=== PATIENT | male | born 1955 | race Caucasian/White ===

== ENCOUNTER 2019-09-27 05:44 | Inpatient (IN) | payer BC ==
[~2019-09-27] VITALS: Ht 172.7 cm; Wt 81.1 kg
[2019-09-27] VITALS (22 sets, daily range): BP systolic 90–144; BP diastolic 44–79
[~2019-09-27 05:44] MED LIST: AMLO2.5T2 PO; BENA40TA8 PO; LANTUS SQ; METF-438 PO; ceFOXitin 2 GM ADDvantage bag 100 ML IV ONE; famotidine 20mg tablet PO ONE; ringers solution, lacted 1,000 ML IV SCH
[2019-09-27] MEDS ORDERED: LIDOcaine 1% (10mg/ml) 2ml vial ONE (06:11)
[2019-09-27] MEDS ORDERED: BUPIVAcaine/PF 2.5 mg/ml (0.25%) 30ml vial ONE ×2 (06:30→10:06)
[2019-09-27] MEDS ORDERED: ceFAZolin 1000mg inj ONE (06:30)
[2019-09-27] MEDS ORDERED: iohexol 300 MG/1 ML 50ml polymer ONE (06:30)
[2019-09-27 06:51] LABS: BASOPHILS # (AUTO) 0.1 X10'3 (0-0.2); BASOPHILS % (AUTO) 1.4 % (0-1); EOSINOPHILS # (AUTO) 0.1 X10'3 (0-0.9); EOSINOPHILS % (AUTO) 1.6 % (0-6); LYMPHOCYTES # (AUTO) 1.4 X10'3 (1.1-4.8); LYMPHOCYTES % (AUTO) 24.7 % (21-51); MEAN CORPUSCULAR HEMOGLOBIN 23.9 PG (27.0-31.0); MEAN CORPUSCULAR HGB CONC 32.4 g/dL (33.0-36.5); MEAN CORPUSCULAR VOLUME 73.7 FL (78-98); MONOCYTES # (AUTO) 0.7 X10'3 (0-0.9); MONOCYTES % (AUTO) 12.5 % (2-12); NEUTROPHILS # (AUTO) 3.4 X10'3 (1.8-7.7); NEUTROPHILS % (AUTO) 59.8 % (42-75); PRE OP HEMATOCRIT 30.8 % (42.0-52.0); PRE OP PLATELET COUNT 340 X10'3 (140-440); RED BLOOD COUNT 4.18 X10'6 (4.70-6.10); RED CELL DISTRIBUTION WIDTH 16.9 % (11.5-14.5)
[2019-09-27] MEDS ORDERED: MIDAZolam 5mg/5ml vial ONE (06:57)
[2019-09-27] MEDS ORDERED: fentaNYL /PF 50mcg/ml 5ml ampule ONE (06:58)
[2019-09-27 07:04] LABS: PRE OP INR 1.1 INR; PRE OP PROTIME 11.2 SECONDS (9.0-12.0)
[2019-09-27 07:05] LABS: ALBUMIN 3.6 G/DL (3.4-5.0); ALBUMIN/GLOBULIN RATIO 0.8 (1.1-1.5); ALKALINE PHOSPHATASE 64 IU/L (46-116); BLOOD UREA NITROGEN 5 MG/DL (7-18); BUN/CREATININE RATIO 5.7 (5.4-32.0); CALCIUM 8.7 MG/DL (8.5-10.1); CHLORIDE 106 MMOL/L (99-107); CREATININE 0.88 MG/DL (0.60-1.10); PRE OP ALT 20 U/L (30-65); PRE OP ANION GAP 11 (8-16); PRE OP AST 28 U/L (10-37); PRE OP BILIRUB, TOTAL 0.3 MG/DL (0.0-1.0); PRE OP GLUCOSE 106 MG/DL (70-104); PRE OP POTASSIUM 3.6 MMOL/L (3.4-5.1); PRE OP SODIUM 143 MMOL/L (135-145); TOTAL PROTEIN 8.1 G/DL (6.4-8.2); eGFR 87 ML/MIN
[2019-09-27] MEDS ORDERED: neostigmine methylsulfate 1 MG/ML 10ml vial ONE (07:05)
[2019-09-27] MEDS ORDERED: desflurane 240ml liquid inh. IH ONE (07:05)
[2019-09-27] MEDS ORDERED: sevoflurane 250ml liquid IH ONE (07:05)
[2019-09-27] MEDS ORDERED: glycopyrrolate 0.2mg/ml inj ONE (07:05)
[2019-09-27 07:10] LABS: HEMOGLOBIN A1C 7.2 % (4.5-6.2)
[2019-09-27] MEDS ORDERED: propofol inj 20 ML IV ONE (08:04)
[2019-09-27] MEDS ORDERED: LIDOcaine 2% (20mg/ml) 5ml vial ONE (08:04)
[2019-09-27] MEDS ORDERED: midazolam 2 mg/2 ml injection ONE (08:17)
[2019-09-27] MEDS ORDERED: dexamethasone sod phosphate 4mg/ml inj. ONE (08:54)
[2019-09-27] MEDS ORDERED: ondansetron/PF 4mg/2ml inj ONE (08:54)
[2019-09-27] MEDS ORDERED: ringers solution, lacted 1,000 ML IV SCH (08:55)
[2019-09-27] MEDS ORDERED: ondansetron/PF 4mg/2ml inj IV PRN ×2 (08:55→15:35)
[2019-09-27] MEDS ORDERED: meperidine/PF 25mg/ml syringe IV PRN ×2 (08:55)
[2019-09-27] MEDS ORDERED: morphine 4 MG/ML inj SYRINge IV PRN ×3 (08:55→15:35)
[2019-09-27] MEDS ORDERED: proCHLORperazine 10 MG/2 ml inj IV PRN (08:55)
[2019-09-27] MEDS ORDERED: BUPIVACAINE liposomal/PF 13.3 MG/ML vial IM ONE (10:06)
[2019-09-27] MEDS ORDERED: fentaNYL/PF 50MCG/1 ML 2ML syringe ONE ×2 (10:26→11:44)
[2019-09-27] MEDS ORDERED: acetaminophen 1,000mg/100ml IV 100 ML IV ONE ×2 (11:15→19:40)
[2019-09-27] MEDS ORDERED: rocuronium 10mg/ml inj IV ONE ×4 (12:38→14:00)
[2019-09-27] MEDS ORDERED: ePHEDrine 50MG/ML INJ. ONE (12:59)
[2019-09-27] MEDS ORDERED: morphine 10mg/ml inj. ONE (13:17)
[2019-09-27] MEDS ORDERED: insulin regular, human vial - multi-dose ONE (13:47)
[2019-09-27] MEDS ORDERED: etomidate 2mg/ml inj. ONE (14:00)
[2019-09-27] MEDS ORDERED: sodium chloride 0.9% 10ml vial - diluent IJ ONE (14:00)
[2019-09-27] MEDS ORDERED: sugammadex 200mg/2ml injection IV ONE (14:46)
[2019-09-27] MEDS ORDERED: fluoroscein sod 10% (100mg/ml) 5ml vial ONE (15:01)
[2019-09-27 15:25] LABS: ISTAT ANION GAP 11 (8-12); ISTAT BUN 4 mg/dL (6-19); ISTAT CL 108 mmol/L (99-107); ISTAT CREATININE 0.7 mg/dL (0.8-1.3); ISTAT GLUCOSE 195 mg/dL (70-104); ISTAT HGB 7.5 g/dl (14.0-18.0); ISTAT Hct 22 %PCV (42-52); ISTAT K 3.6 mmol/L (3.5-5.1); ISTAT NA 140 mmol/L (135-145); ISTAT TOTAL CO2 21 mmol/L (24-32); ISTAT eGFR > 90 ML/MIN; POC BUN/CREATININE RATIO 5.7 (5.4-32.0)
[2019-09-27] MEDS ORDERED: magnesium hydroxide 30ml (MOM) UD suspension PO PRN (15:35)
[2019-09-27] MEDS ORDERED: potassium Cl 20 mEq SR tablet PO PRN ×2 (15:35)
[2019-09-27] MEDS ORDERED: morphine 2 MG/ML inj. syringe IV PRN ×2 (15:35→19:40)
[2019-09-27] MEDS ORDERED: acetaminophen 325mg tablet PO PRN ×2 (15:35)
[2019-09-27] MEDS: K, MAG and/or Phos replacement - Verify level? MC SCH (15:35)
[2019-09-27] MEDS: meperidine/PF 25mg/ml syringe IV PRN ×2 (15:50→16:00)
--- NOTE | 2019-09-27 16:00 | NUR ---
MEDICATED FOR CONTINUED PAIN WITH DEMEROL, EFFECTIVE, FAMILY AT BEDSIDE, ACCUCHECK DONE, DR. BHATIA AT BEDSIDE UPDATE GIVEN.
--- NOTE | 2019-09-27 16:25 | NUR ---
PACU DISCHARGE CRITERIA MET, REPORT GIVEN TO MONSERRAT IN ICU. DENIES PAIN OR DISCOMFORT, TRANSFERRED TO ROOM IN STABLE GOOD CONDITION. FAMILY AT BEDSIDE, MEDICATED FOR PAIN PRIOR TO TRANSFER.
[2019-09-27] MEDS ORDERED: normal saline 1000ml 1,000 ML IV ONE (16:45)
--- NOTE | 2019-09-27 16:51 | NUR ---
ADMITTED TO PACU FROM OR ACCOMPANIED BY ANESTHESIA. INTIAL PHYSICAL ASSESSMENT DONE AND RECORDED. REPORT RECEIVED FROM ANESTHESIA. MEDICATED FOR PAIN ON ARRIVAL, PRESSURE LINES AIR ZEORED AND CALIBRATED. PCXR DONE ON ARRIVAL FOR LINE PLACEMENT. ARIE DRAIN, WOUND VAC, AND ILEOSTOMY NOTED AND FUNCTIONING. DR. TORRES IN ATTENDANCE
[2019-09-27] MEDS ORDERED: meperidine/PF 25mg/ml syringe ONE (16:59)
[2019-09-27 17:33] LABS: HEMATOCRIT 24.7 % (42.0-52.0); HEMOGLOBIN 7.9 g/dl (14.0-17.9); MEAN CORPUSCULAR HGB CONC 31.9 g/dL (33.0-36.5); MEAN CORPUSCULAR VOLUME 75.1 FL (78-98); MEAN PLATELET VOLUME 6.6 FL (7.4-10.4); PLATELET COUNT 197 X10'3 (140-440); RED BLOOD COUNT 3.29 X10'6 (4.70-6.10); RED CELL DISTRIBUTION WIDTH 17.7 % (11.5-14.5); WHITE BLOOD COUNT 2.3 X10'3 (4.5-11.0)
[2019-09-27] MEDS: LIDOcaine 5% patch TP SCH (18:01)
[2019-09-27] MEDS: piperacillin/tazo 4.5gm/100ml 100 ML IV SCH ×2 (18:04→23:51)
[2019-09-27] MEDS: morphine 4 MG/ML inj SYRINge IV PRN ×2 (18:06→22:52)
[2019-09-27] MEDS: potassium cl 20mEq in 1/2 NS 1,000 ML IV SCH (18:12)
--- NOTE | 2019-09-27 18:30 | NUR ---
Patient in room ICU 2038. I have received report from Joe MACIAS and had the opportunity to ask questions and assume patient care.
--- NOTE | 2019-09-27 19:40 | NUR ---
Radha updated on patient's status. Orders received. Pt drowsy but responds to questions, Tolerating occasional ice chips, no complaints of nausea. Will continue to monitor.
--- NOTE | 2019-09-27 20:17 | NUR ---
Dr. Cardenas updated on patient's status, orders received. Pt's family at bedside, questions answered, concerns addressed.
[2019-09-27] MEDS: ketorolac tromethamine 15mg/ml inj. IV SCH (20:20)
[2019-09-27] MEDS ORDERED: simethicone 80mg chew tab PO PRN (21:45)
[2019-09-28] VITALS (31 sets, daily range): BP systolic 83–117; BP diastolic 48–64
[2019-09-28] MEDS: potassium cl 20mEq in 1/2 NS 1,000 ML IV SCH ×3 (01:35→14:57)
[2019-09-28] MEDS ORDERED: MESSAGE TO PHARMACY PO ONE (01:50)
[2019-09-28] MEDS ORDERED: glucagon, human recombinant 1mg kit SUBCUT PRN (01:50)
[2019-09-28] MEDS ORDERED: dextrose ORAL solution 15 GM/59 ML bottle PO PRN ×2 (01:50)
[2019-09-28] MEDS ORDERED: dextrose 50%-water 50ml dispensing syringe IV PRN ×2 (01:50)
[2019-09-28 01:56] LABS: BASOPHILS % (AUTO) 0.1 % (0-1); EOSINOPHILS % (AUTO) 0 % (0-6); HEMATOCRIT 34.3 % (42.0-52.0); HEMOGLOBIN 11.1 g/dl (14.0-17.9); LYMPHOCYTES # (AUTO) 0.4 X10'3 (1.1-4.8); MEAN CORPUSCULAR HEMOGLOBIN 26.1 PG (27.0-31.0); MEAN CORPUSCULAR HGB CONC 32.5 g/dL (33.0-36.5); MEAN CORPUSCULAR VOLUME 80.4 FL (78-98); MEAN PLATELET VOLUME 7.7 FL (7.4-10.4); MONOCYTES # (AUTO) 0.2 X10'3 (0-0.9); MONOCYTES % (AUTO) 8.1 % (2-12); NEUTROPHILS # (AUTO) 2.1 X10'3 (1.8-7.7); NEUTROPHILS % (AUTO) 78.8 % (42-75); PLATELET COUNT 184 X10'3 (140-440); RED BLOOD COUNT 4.27 X10'6 (4.70-6.10); RED CELL DISTRIBUTION WIDTH 19.8 % (11.5-14.5); WHITE BLOOD COUNT 2.7 X10'3 (4.5-11.0)
[2019-09-28] MEDS: ketorolac tromethamine 15mg/ml inj. IV SCH ×4 (02:07→16:00)
[2019-09-28 02:10] LABS: PARTIAL THROMBOPLASTIN TIME 31 SECONDS (22-32)
[2019-09-28 02:20] LABS: ALANINE AMINOTRANSFERASE 16 U/L (12-78); ALBUMIN/GLOBULIN RATIO 0.7 (1.1-1.5); ALKALINE PHOSPHATASE 32 IU/L (46-116); ANION GAP 11 (8-16); ASPARTATE AMINO TRANSFERASE 28 U/L (10-37); BILIRUBIN,TOTAL 1.1 MG/DL (0.1-1.0); BLOOD UREA NITROGEN 12 MG/DL (7-18); BUN/CREATININE RATIO 7.6 (5.4-32.0); CALCIUM 6.6 MG/DL (8.5-10.1); CHLORIDE 108 MMOL/L (99-107); CREATININE 1.57 MG/DL (0.60-1.10); GLUCOSE 211 MG/DL (70-104); MAGNESIUM 1.1 MG/DL (1.5-2.4); PHOSPHORUS 5.5 MG/DL (2.3-4.5); POTASSIUM 4.8 MMOL/L (3.5-5.1); SODIUM 140 MMOL/L (135-145); TOTAL CARBON DIOXIDE 20.6 MMOL/L (24-32); TOTAL PROTEIN 4.8 G/DL (6.4-8.2); eGFR 45 ML/MIN
[2019-09-28] MEDS ORDERED: magnesium 4gm in 100ml NS 100 ML IV PRN (03:10)
[2019-09-28] MEDS ORDERED: magnesium 2GM in 50ml NS 50 ML IV PRN (03:10)
[2019-09-28 03:12] LABS: TOTAL CELLS COUNTED 100
[2019-09-28 03:13] LABS: ANISOCYTOSIS 2+; BURR CELLS FEW; ELLIPTOCYTES FEW; PLATELET ESTIMATE NORMAL
--- NOTE | 2019-09-28 03:16 | NUR ---
Radha updated on current labs, orders received. Pt appears to be sleeping at this time. Pt's son at bedside. Questions answered, concerns addressed. Will continue to monitor.
[2019-09-28] MEDS: acetaminophen 1,000mg/100ml IV 100 ML IV PRN ×3 (03:55→19:41)
--- NOTE | 2019-09-28 06:32 | NUR ---
Problems reprioritized. Patient report given, questions answered & plan of care reviewed with Adonis MACIAS. Addendum: 09/28/19 at 0639 by Tamy Smith RN Amend:Problems reprioritized. Patient report given, questions answered & plan of care reviewed with Brannon MACIAS.
[2019-09-28] MEDS: morphine 4 MG/ML inj SYRINge IV PRN ×3 (07:15→19:42)
[2019-09-28] MEDS: piperacillin/tazo 4.5gm/100ml 100 ML IV SCH ×2 (07:55→16:53)
[2019-09-28] MEDS: insulin Lispro (HumaLOG) vial - multi-dose SQ SCH (07:57)
[2019-09-28] MEDS: K, MAG and/or Phos replacement - Verify level? MC SCH (08:00)
[2019-09-28] MEDS: LIDOcaine 5% patch TP SCH (08:00)
[2019-09-28] MEDS ORDERED: enoxaparin 40mg/0.4ml syringe SUBCUT SCH (08:40)
[2019-09-28] MEDS ORDERED: albumin (Human) 5% 250ml 250 ML IV ONE ×2 (08:40→10:00)
--- NOTE | 2019-09-28 09:56 | NUR ---
DM consult: Pt with T2DM current A1c 7.2 with Metformin and Lantus on reported med list per H&P. Pt s/p colonoscopy with bilat ureteral stent placement and lap sigmoid colon resection. Diet advanced to clear liquid at this time. Pt would benefit from DM education prior to discharge once stable. Will continue to follow. Addendum: 09/28/19 at [address] Amended: Links added.
[2019-09-28 13:30] LABS: HEMATOCRIT 28.8 % (42.0-52.0); HEMOGLOBIN 9.4 g/dl (14.0-17.9); MEAN CORPUSCULAR HEMOGLOBIN 26.1 PG (27.0-31.0); MEAN CORPUSCULAR HGB CONC 32.5 g/dL (33.0-36.5); MEAN CORPUSCULAR VOLUME 80.3 FL (78-98); PLATELET COUNT 117 X10'3 (140-440); RED BLOOD COUNT 3.59 X10'6 (4.70-6.10); WHITE BLOOD COUNT 3.1 X10'3 (4.5-11.0)
[2019-09-28 15:54] LABS: PARTIAL THROMBOPLASTIN TIME 50 SECONDS (22-32)
[2019-09-28] MEDS: ipratropium/albuterol 3ml nebule NEB SCH ×2 (16:49→23:09)
--- NOTE | 2019-09-28 18:30 | NUR ---
Shift Summary: Dr. Mejia at bedside this AM with orders to ambulate patient and start post-surgical prophylactic Lovenox. Creatinine also noted to be elevated and urine output decreasing to less than 30ml/h; blood pressure also decreased with SBP in the upper 80s and low 90s. Orders for 500ml of 5% Albumin. After administration, no significant changes noted. By this time, patient ambulated with physical therapy and up in recliner. Blood pressure remained low in the low 90s and increased ARIE drain output with more sanguinous blood. Dr. Mejia notified with orders to check H/H. Blood pressure in the low 80s and 500ml normal saline orders. After obtaining H/H, a drop was noted from 11.[address] Mejia ordered x1 unit PRBC and to keep patient in bed. Patient's abdomen with increased distention; MD aware. Also, o2 requirements increasing: patient on 1L NC at the start of shift and up as high as 6L NC with o2 saturation in the low 90s. Dr. Yung consulting with orders for q8h metanebs and frequent turns; AM chest x-rays to follow. Dr. Yung also assessing kidneys with orders to increase 1/2 NS with 20 of K for 1 liter at 125ml/h and then decrease after that liter. pTT ordered by Dr. Yung with q4h hemograms; ptt resulted at [address] Yung notified: Orders to administer 1 unit of FFP. Patient report given to Letty MACIAS with all questions answered.
[2019-09-28] MEDS ORDERED: ipratropium/albuterol 3ml nebule NEB SCH (19:00)
[2019-09-28] MEDS: methylnaltrexone br 12mg/0.6ml inj***SubQ only SQ SCH (19:42)
[2019-09-28 20:54] LABS: HEMATOCRIT 32.8 % (42.0-52.0); HEMOGLOBIN 10.8 g/dl (14.0-17.9); MEAN CORPUSCULAR HEMOGLOBIN 26.5 PG (27.0-31.0); MEAN CORPUSCULAR VOLUME 80.3 FL (78-98); MEAN PLATELET VOLUME 7.8 FL (7.4-10.4); PLATELET COUNT 103 X10'3 (140-440); RED BLOOD COUNT 4.08 X10'6 (4.70-6.10); RED CELL DISTRIBUTION WIDTH 20.2 % (11.5-14.5); WHITE BLOOD COUNT 2.4 X10'3 (4.5-11.0)
[2019-09-28] MEDS: insulin glargine (Lantus) pen - multi-dose SQ SCH (21:00)
[2019-09-28 21:04] LABS: PARTIAL THROMBOPLASTIN TIME 43 SECONDS (22-32)
[2019-09-28] MEDS: tizanidine 4mg tablet PO PRN (21:20)
[2019-09-28] MEDS ORDERED: naloxone 0.4 mg/ml inj IV PRN (23:00)
[2019-09-28] MEDS: HYDROmorphone/NS 1 mg/ml CADD 50 ML IV SCH (23:00)
[2019-09-28] MEDS ORDERED: CADD PCA waste documentation MC SCH (23:00)
[2019-09-29] VITALS (24 sets, daily range): BP systolic 89–137; BP diastolic 50–81
[2019-09-29] MEDS: piperacillin/tazo 4.5gm/100ml 100 ML IV SCH ×4 (00:01→23:34)
[2019-09-29] MEDS: potassium cl 20mEq in 1/2 NS 1,000 ML IV SCH ×2 (00:01→17:35)
[2019-09-29] MEDS: HYDROmorphone/NS 1 mg/ml CADD 50 ML IV SCH ×13 (00:01→23:00)
[2019-09-29 00:36] LABS: BASOPHILS % (AUTO) 0.3 % (0-1); EOSINOPHILS % (AUTO) 0.9 % (0-6); HEMATOCRIT 32.2 % (42.0-52.0); HEMOGLOBIN 10.6 g/dl (14.0-17.9); LYMPHOCYTES # (AUTO) 0.4 X10'3 (1.1-4.8); LYMPHOCYTES % (AUTO) 17.1 % (21-51); MEAN CORPUSCULAR HEMOGLOBIN 26.3 PG (27.0-31.0); MEAN CORPUSCULAR HGB CONC 32.9 g/dL (33.0-36.5); MEAN CORPUSCULAR VOLUME 79.9 FL (78-98); MEAN PLATELET VOLUME 7.6 FL (7.4-10.4); MONOCYTES # (AUTO) 0.1 X10'3 (0-0.9); MONOCYTES % (AUTO) 5.2 % (2-12); NEUTROPHILS % (AUTO) 76.5 % (42-75); PLATELET COUNT 92 X10'3 (140-440); RED BLOOD COUNT 4.03 X10'6 (4.70-6.10); RED CELL DISTRIBUTION WIDTH 20.3 % (11.5-14.5); WHITE BLOOD COUNT 2.6 X10'3 (4.5-11.0)
[2019-09-29 00:46] LABS: PHOSPHORUS 4.2 MG/DL (2.3-4.5)
[2019-09-29 01:01] LABS: ANISOCYTOSIS 3+; MICROCYTOSIS 1+; PLATELET ESTIMATE DECREASED; TOTAL CELLS COUNTED 100
[2019-09-29 01:02] LABS: BURR CELLS 2+; ELLIPTOCYTES FEW; POLYCHROMASIA FEW
[2019-09-29 01:18] LABS: ALANINE AMINOTRANSFERASE 30 U/L (12-78); ALBUMIN 2.2 G/DL (3.4-5.0); ALBUMIN/GLOBULIN RATIO 0.8 (1.1-1.5); ALKALINE PHOSPHATASE 29 IU/L (46-116); ANION GAP 14 (8-16); ASPARTATE AMINO TRANSFERASE 44 U/L (10-37); BILIRUBIN,TOTAL 0.9 MG/DL (0.1-1.0); BLOOD UREA NITROGEN 19 MG/DL (7-18); BUN/CREATININE RATIO 10.3 (5.4-32.0); CALCIUM 6.8 MG/DL (8.5-10.1); CHLORIDE 105 MMOL/L (99-107); CREATININE 1.85 MG/DL (0.60-1.10); GLUCOSE 111 MG/DL (70-104); MAGNESIUM 2.3 MG/DL (1.5-2.4); POTASSIUM 5.1 MMOL/L (3.5-5.1); SODIUM 137 MMOL/L (135-145); TOTAL CARBON DIOXIDE 18.5 MMOL/L (24-32); TOTAL PROTEIN 5.1 G/DL (6.4-8.2); eGFR 37 ML/MIN
[2019-09-29 04:49] LABS: HEMATOCRIT 31.8 % (42.0-52.0); HEMOGLOBIN 10.4 g/dl (14.0-17.9); MEAN CORPUSCULAR HEMOGLOBIN 26.4 PG (27.0-31.0); MEAN CORPUSCULAR HGB CONC 32.7 g/dL (33.0-36.5); MEAN CORPUSCULAR VOLUME 80.8 FL (78-98); MEAN PLATELET VOLUME 7.9 FL (7.4-10.4); PLATELET COUNT 90 X10'3 (140-440); RED BLOOD COUNT 3.93 X10'6 (4.70-6.10); RED CELL DISTRIBUTION WIDTH 20.3 % (11.5-14.5); WHITE BLOOD COUNT 3.5 X10'3 (4.5-11.0)
[2019-09-29] MEDS: ipratropium/albuterol 3ml nebule NEB SCH ×3 (07:58→23:00)
[2019-09-29] MEDS: K, MAG and/or Phos replacement - Verify level? MC SCH (08:00)
[2019-09-29] MEDS: LIDOcaine 5% patch TP SCH (08:00)
[2019-09-29] MEDS: docusate sod 100mg capsule PO SCH ×2 (08:26→20:39)
[2019-09-29] MEDS: albumin (human) 25% 100ml IV 200 ML IV SCH ×3 (08:30→23:34)
[2019-09-29 09:01] LABS: HEMATOCRIT 33.1 % (42.0-52.0); MEAN CORPUSCULAR HEMOGLOBIN 26.5 PG (27.0-31.0); MEAN CORPUSCULAR HGB CONC 33.2 g/dL (33.0-36.5); MEAN CORPUSCULAR VOLUME 79.9 FL (78-98); MEAN PLATELET VOLUME 7.9 FL (7.4-10.4); PLATELET COUNT 92 X10'3 (140-440); RED BLOOD COUNT 4.14 X10'6 (4.70-6.10); RED CELL DISTRIBUTION WIDTH 20.2 % (11.5-14.5); WHITE BLOOD COUNT 5.1 X10'3 (4.5-11.0)
[2019-09-29] MEDS: sodium bicarbonate (8.4%) inj. 100 MEQ in dextrose 5%-water 1,000 ML IV SCH ×2 (09:30→20:42)
--- NOTE | 2019-09-29 12:41 | NUR ---
Initial: Pt s/p lysis of dense adhesions, repair of perforated colon to pelvic side wall, 10cm rectal and 40cm sigmoid CA resection, and diverting ileostomy placement per MD note. Pt R colon dilated pressing on diaphragm but connected to anus to able to move out gas per MD note. 30ml ileostomy output noted so far post-op receiving colace and relistor. Pt remains on clear liquids per RN 25% PO first day documented so far. RD d/w RN regarding advancement to low-residue/carb controlled diet per surgeon approval given MD note states surgeon okayed pt to eat anything. Pt will need DM/ileostomy diet eds once more appropriate post-op prior to d/c. Will monitor for diet advancement and tolerance. Rec: 1. advance diet per MD to carb controlled/low-residue 2. monitor for ONS needs post-op 3. DM/ileostomy eds prior to d/c 4. monitor for ileostomy output post-op 5. daily wts Addendum: 09/29/19 at [address] Amended: Links added.
[2019-09-29 13:14] LABS: HEMATOCRIT 30.7 % (42.0-52.0); MEAN CORPUSCULAR HEMOGLOBIN 26.4 PG (27.0-31.0); MEAN CORPUSCULAR HGB CONC 32.6 g/dL (33.0-36.5); PLATELET COUNT 82 X10'3 (140-440); RED BLOOD COUNT 3.79 X10'6 (4.70-6.10); RED CELL DISTRIBUTION WIDTH 20.7 % (11.5-14.5); WHITE BLOOD COUNT 6.4 X10'3 (4.5-11.0)
[2019-09-29] MEDS: fluconazole-Diflucan 200mg/NS 100 ML IV SCH (13:20)
[2019-09-29] MEDS: tizanidine 4mg tablet PO PRN (13:41)
[2019-09-29] MEDS ORDERED: amiodarone/D5 360MG/200ML BAG 200 ML IV SCH (14:35)
[2019-09-29] MEDS ORDERED: amiodarone 150mg/dext, iso-os 100 ML IV ONE ×2 (14:35→14:40)
[2019-09-29] MEDS ORDERED: amiodarone/D5 360MG/200ML BAG 200 ML IV ONE (14:40)
[2019-09-29] MEDS ORDERED: verapamil 2.5 mg/ml inj IV ONE (15:00)
[2019-09-29] MEDS ORDERED: digoxin 250mcg/ml 2ml ampule IV ONE ×3 (15:35→21:45)
[2019-09-29 16:49] LABS: HEMATOCRIT 30.2 % (42.0-52.0); HEMOGLOBIN 10.1 g/dl (14.0-17.9); MEAN CORPUSCULAR HGB CONC 33.4 g/dL (33.0-36.5); MEAN CORPUSCULAR VOLUME 80.8 FL (78-98); MEAN PLATELET VOLUME 7.6 FL (7.4-10.4); PLATELET COUNT 79 X10'3 (140-440); RED BLOOD COUNT 3.74 X10'6 (4.70-6.10); RED CELL DISTRIBUTION WIDTH 20.6 % (11.5-14.5); WHITE BLOOD COUNT 7.9 X10'3 (4.5-11.0)
[2019-09-29] MEDS ORDERED: diltiazem 5mg/ml 5ml inj. IV ONE (18:05)
[2019-09-29] MEDS ORDERED: diltiazem-NS 100mg/100ml 125 ML IV SCH (18:15)
[2019-09-29] MEDS: diltiazem-NS 100mg/100ml 100 ML IV SCH (18:54)
--- NOTE | 2019-09-29 19:09 | NUR ---
HR converted to Afib around 1500, EKG done, called , Ordered received to start on Amiodarone bolus and drip per protocol. Order noted. Per Dr. Salazar administered Verapamil with no effectiveness. Dr. Elmore ordered Digoxin which was given with no decrease in HR. Per Dr. Carranza administered 10mg Cardizem push and started pt on cardizem drip. Gave report to Letty (shift supervisor rn Nurse).
[2019-09-29] MEDS: sodium bicarbonate (8.4%) inj. 75 MEQ in dextrose 5%-water 500 ML IV SCH ×2 (19:26→23:30)
[2019-09-29] MEDS: amiodarone/D5 360MG/200ML BAG 200 ML IV SCH (20:40)
[2019-09-29] MEDS: insulin glargine (Lantus) pen - multi-dose SQ SCH (21:00)
[2019-09-30] VITALS (25 sets, daily range): BP systolic 104–183; BP diastolic 50–93
[2019-09-30 00:31] LABS: ABG BASE EXCESS -6.1 mmol/L (-2.0-3.0); ABG HCO3 19.4 mmol/L (22.0-26.0); ABG PCO2 (T) 39.7 mmHg (35.0-45.0); ABG PO2 (T) 62.7 mmHg (83-108); ALLEN'S TEST Positive; FCOHb 0.3 % (0.5-1.5); FLOW 40 L/min; FMetHb 0.1 % (0.3-1.12); FO2Hb 89.6 % (94-100); PATIENT TEMPERATURE 37.9; TOTAL HEMOGLOBIN 10.9 G/dl (14.0-17.9)
[2019-09-30 00:38] LABS: BASOPHILS % (AUTO) 0.2 % (0-1); EOSINOPHILS # (AUTO) 0.1 X10'3 (0-0.9); EOSINOPHILS % (AUTO) 0.6 % (0-6); HEMATOCRIT 30.4 % (42.0-52.0); LYMPHOCYTES # (AUTO) 0.6 X10'3 (1.1-4.8); LYMPHOCYTES % (AUTO) 6.9 % (21-51); MEAN CORPUSCULAR HEMOGLOBIN 26.4 PG (27.0-31.0); MEAN CORPUSCULAR HGB CONC 32.9 g/dL (33.0-36.5); MEAN CORPUSCULAR VOLUME 80.1 FL (78-98); MEAN PLATELET VOLUME 7.3 FL (7.4-10.4); MONOCYTES # (AUTO) 0.2 X10'3 (0-0.9); MONOCYTES % (AUTO) 2.4 % (2-12); NEUTROPHILS # (AUTO) 8.3 X10'3 (1.8-7.7); NEUTROPHILS % (AUTO) 89.9 % (42-75); PLATELET COUNT 79 X10'3 (140-440); RED BLOOD COUNT 3.79 X10'6 (4.70-6.10); RED CELL DISTRIBUTION WIDTH 20.7 % (11.5-14.5); WHITE BLOOD COUNT 9.3 X10'3 (4.5-11.0)
[2019-09-30 00:53] LABS: PARTIAL THROMBOPLASTIN TIME 50 SECONDS (22-32)
[2019-09-30 00:55] LABS: ALANINE AMINOTRANSFERASE 21 U/L (12-78); ALBUMIN 3.1 G/DL (3.4-5.0); ALBUMIN/GLOBULIN RATIO 1.1 (1.1-1.5); ALKALINE PHOSPHATASE 43 IU/L (46-116); ANION GAP 11 (8-16); ASPARTATE AMINO TRANSFERASE 47 U/L (10-37); BILIRUBIN,TOTAL 0.7 MG/DL (0.1-1.0); BLOOD UREA NITROGEN 18 MG/DL (7-18); BUN/CREATININE RATIO 12.3 (5.4-32.0); CALCIUM 7.8 MG/DL (8.5-10.1); CHLORIDE 102 MMOL/L (99-107); CREATININE 1.46 MG/DL (0.60-1.10); GLUCOSE 202 MG/DL (70-104); POTASSIUM 4.5 MMOL/L (3.5-5.1); SODIUM 136 MMOL/L (135-145); TOTAL CARBON DIOXIDE 23.2 MMOL/L (24-32); TOTAL PROTEIN 5.9 G/DL (6.4-8.2); eGFR 49 ML/MIN
[2019-09-30] MEDS ORDERED: midazolam 100mg in NS 100ml 100 ML IV PRN ×2 (01:00→09:05)
[2019-09-30] MEDS: HYDROmorphone/NS 1 mg/ml CADD 50 ML IV SCH ×12 (01:00→23:00)
[2019-09-30] MEDS ORDERED: ipratropium/albuterol 3ml nebule NEB PRN (01:00)
[2019-09-30] MEDS ORDERED: FENTANYL-0.9 % NACL/PF 100 ML IV PRN (01:00)
[2019-09-30 01:03] LABS: MAGNESIUM 2.2 MG/DL (1.5-2.4); PHOSPHORUS 2.2 MG/DL (2.3-4.5)
[2019-09-30] MEDS ORDERED: midazolam 2 mg/2 ml injection ONE ×2 (01:03→08:16)
[2019-09-30] MEDS: sodium bicarbonate (8.4%) inj. 75 MEQ in dextrose 5%-water 500 ML IV SCH ×4 (02:05→18:57)
--- NOTE | 2019-09-30 02:30 | NUR ---
Approx 2300, pt started having decreased saturations. NC increased from 6 to 8 liters with slight improvement. After a short period of time, desaturations continued requiring increase in NC to [address] RT attempted to place patient on a HFNC tower without much improvement and poor ABG analysis. LEI Ahn consulted Dr. Carranza and the decision was made to intubate. Upon ED MD arriving to intubate, the patients son determined he wanted to start with less invasive, more conservative measures. It was decided to place pt on Bipap with noted improvements in O2 sats. Repeat ABG showed improvement, Dr. Carranza notified by LEI Ahn.
[2019-09-30] MEDS ORDERED: ipratropium/albuterol 3ml nebule NEB SCH (03:00)
[2019-09-30] MEDS: heparin, porcine 5000 units/ml vial SQ SCH ×3 (03:24→15:41)
[2019-09-30 03:31] LABS: ABG BASE EXCESS -5.2 mmol/L (-2.0-3.0); ABG HCO3 20.9 mmol/L (22.0-26.0); ABG OXYGEN SATURATION 93.8 % (95-98); ABG PCO2 (T) 44.4 mmHg (35.0-45.0); ABG PH (T) 7.294 (7.350-7.450); ABG PO2 (T) 77.4 mmHg (83-108); ALLEN'S TEST Positive; FCOHb 0.3 % (0.5-1.5); FMetHb 0.1 % (0.3-1.12); FO2Hb 93.4 % (94-100); PATIENT TEMPERATURE 37.9; RESPIRATORY RATE 14 b/min; RESPIRATORY RATE (OBSERVED) 17 b/min; TOTAL HEMOGLOBIN 10.5 G/dl (14.0-17.9)
[2019-09-30] MEDS: potassium cl 20mEq in 1/2 NS 1,000 ML IV SCH ×3 (03:35→23:35)
[2019-09-30 03:41] LABS: ALANINE AMINOTRANSFERASE 22 U/L (12-78); ALBUMIN 2.8 G/DL (3.4-5.0); ALKALINE PHOSPHATASE 42 IU/L (46-116); ANION GAP 10 (8-16); ASPARTATE AMINO TRANSFERASE 33 U/L (10-37); BILIRUBIN,TOTAL 0.6 MG/DL (0.1-1.0); CALCIUM 7.6 MG/DL (8.5-10.1); CHLORIDE 104 MMOL/L (99-107); CREATININE 1.48 MG/DL (0.60-1.10); GLUCOSE 181 MG/DL (70-104); MAGNESIUM 2.1 MG/DL (1.5-2.4); PHOSPHORUS 2.2 MG/DL (2.3-4.5); POTASSIUM 4.4 MMOL/L (3.5-5.1); SODIUM 136 MMOL/L (135-145); TOTAL CARBON DIOXIDE 21.9 MMOL/L (24-32); TOTAL PROTEIN 5.6 G/DL (6.4-8.2); eGFR 48 ML/MIN
[2019-09-30 03:49] LABS: BLOOD UREA NITROGEN 16 MG/DL (7-18); BUN/CREATININE RATIO 10.8 (5.4-32.0)
[2019-09-30 05:22] LABS: CLARITY,URINE CLOUDY (Clear); COLOR,URINE BROWN (Yellow); GLUCOSE, URINE NEGATIVE (Neg); KETONES,URINE 15 mg/dl (Neg); LEUKOCYTE ESTERASE ,URINE NEGATIVE (Neg); OCCULT BLOOD,URINE LARGE (Neg); PROTEIN,URINE 100 mg/dl (Neg); UROBILINOGEN,URINE 0.2 E.U/dL (0.2-1.0)
[2019-09-30 05:23] LABS: NITRITES, URINE NEGATIVE (Neg); UA COLLECTION TYPE NON-SPECIFIED
[2019-09-30 05:29] LABS: RBC,URINE TNTC /HPF (0-2)
[2019-09-30 05:30] LABS: BACTERIA,URINE 1+ /HPF (Neg); MUCUS STRANDS NONE SEEN /LPF (Neg); SQUAMOUS EPITHELIAL CELL,UR NONE SEEN /LPF (FEW)
[2019-09-30 07:12] LABS: BASOPHILS % (AUTO) 0.3 % (0-1); EOSINOPHILS % (AUTO) 0.6 % (0-6); HEMOGLOBIN 10.7 g/dl (14.0-17.9); LYMPHOCYTES # (AUTO) 0.5 X10'3 (1.1-4.8); LYMPHOCYTES % (AUTO) 6.2 % (21-51); MEAN CORPUSCULAR HEMOGLOBIN 26.7 PG (27.0-31.0); MEAN CORPUSCULAR HGB CONC 33.5 g/dL (33.0-36.5); MEAN CORPUSCULAR VOLUME 79.8 FL (78-98); MEAN PLATELET VOLUME 7.5 FL (7.4-10.4); MONOCYTES # (AUTO) 0.3 X10'3 (0-0.9); MONOCYTES % (AUTO) 3.4 % (2-12); NEUTROPHILS # (AUTO) 6.7 X10'3 (1.8-7.7); NEUTROPHILS % (AUTO) 89.5 % (42-75); PLATELET COUNT 81 X10'3 (140-440); RED BLOOD COUNT 4.01 X10'6 (4.70-6.10); RED CELL DISTRIBUTION WIDTH 20.7 % (11.5-14.5); WHITE BLOOD COUNT 7.5 X10'3 (4.5-11.0)
[2019-09-30] MEDS: piperacillin/tazo 4.5gm/100ml 100 ML IV SCH (07:19)
[2019-09-30] MEDS: docusate sod 100mg capsule PO SCH (07:26)
[2019-09-30] MEDS: methylnaltrexone br 12mg/0.6ml inj***SubQ only SQ SCH (07:27)
[2019-09-30] MEDS: K, MAG and/or Phos replacement - Verify level? MC SCH (07:27)
[2019-09-30] MEDS: albumin (human) 25% 100ml IV 200 ML IV SCH ×2 (07:35→15:34)
[2019-09-30] MEDS: fluconazole-Diflucan 200mg/NS 100 ML IV SCH (07:48)
[2019-09-30] MEDS: ipratropium/albuterol 3ml nebule NEB SCH ×3 (07:53→22:56)
--- NOTE | 2019-09-30 07:59 | NUR ---
Dr. Coombs at bedside talking with patient and pt's son and .
--- NOTE | 2019-09-30 08:07 | NUR ---
PT ON BIPAP. UNABLE TO USE METANEB Addendum: 09/30/19 at 0808 by Tiara Herman RT Amended: Links added.
--- NOTE | 2019-09-30 08:11 | NUR ---
Dr. Elias at bedside talking with family and Dr. Yung.
[2019-09-30] MEDS: linezolid 600mg/300ml PREMIX 300 ML IV SCH ×2 (08:20→19:44)
[2019-09-30] MEDS: LIDOcaine 5% patch TP SCH (08:21)
[2019-09-30 08:48] LABS: PLATELET ESTIMATE DECREASED; TOTAL CELLS COUNTED 100
[2019-09-30] MEDS: diltiazem-NS 100mg/100ml 100 ML IV SCH (08:49)
[2019-09-30 08:54] LABS: ANISOCYTOSIS 3+; MICROCYTOSIS 1+
[2019-09-30 08:55] LABS: BURR CELLS FEW; POLYCHROMASIA FEW
[2019-09-30 08:56] LABS: ELLIPTOCYTES FEW; SCHISTOCYTES FEW
[2019-09-30] MEDS: amiodarone/D5 360MG/200ML BAG 200 ML IV SCH (09:01)
--- NOTE | 2019-09-30 09:51 | NUR ---
Pt. intubated at [address] Esparza to bronch pt.t this morning.
[2019-09-30 10:45] LABS: ABG BASE EXCESS -3.6 mmol/L (-2.0-3.0); ABG HCO3 22.1 mmol/L (22.0-26.0); ABG OXYGEN SATURATION 89.4 % (95-98); ABG PH (T) 7.315 (7.350-7.450); ABG PO2 (T) 62.8 mmHg (83-108); ALLEN'S TEST Positive; FCOHb 0.3 % (0.5-1.5); FLOW 35 L/min; FMetHb 0.1 % (0.3-1.12); MINUTE VOLUME 8 L/min; PATIENT TEMPERATURE 38.2; PEEP 10 cm H2O; RESPIRATORY RATE 14 b/min; RESPIRATORY RATE (OBSERVED) 16 b/min; TIDAL VOLUME 475 mL; TOTAL HEMOGLOBIN 9.9 G/dl (14.0-17.9)
--- NOTE | 2019-09-30 12:10 | NUR ---
TF consult (09/30): Pt is intubated with ARDS this am per MD during rounds. TF recommendations with Vital AF 1.2 Ike at goal rate of 75ml/hr. Temporary formula use for today with Glucerna at goal rate of 75ml/hr due to lack of Vital AF 1.2 Ike in stock; RN notified. Pt ileostomy output 65ml since placement and relistor to no longer be given per surgeon. Pt started on zyvox. Pt would benefit with zyvox ed when stable prior to discharge.Will continue to monitor. Rec: 1.Continuous TF using Vital AF 1.2 Ike at goal rate of 80ml/hr;to provide 1920ml fluid,2304kcal,1555ml free water, and 144g protein. 2.If out of Vital AF, TF using Glucerna at goal rate of 80ml/hr;to provide 1920ml fluid, 2304kcal,1555ml free water, and 115g protein, until Vital AF restocked. 3.Additional water flushes 125ml Q6H. 4. When extubate, advance diet per MD to carb controlled/low-residue 5. DM/ileostomy eds prior to d/c 6. monitor for ileostomy output post-op 7. daily wts; prealbumin qM/Th Addendum: 09/30/19 at [address] Amended: Links added. Addendum: 09/30/19 at [address] ZOLTAN [place]
[2019-09-30 13:34] LABS: PREALBUMIN 7.5 MG/DL (19-36)
[2019-09-30] MEDS ORDERED: insulin regular, human vial - multi-dose SQ SCH (13:50)
[2019-09-30] MEDS: piperacillin/tazo 3.375gm/50ml 50 ML IV SCH (15:31)
--- NOTE | 2019-09-30 16:39 | NUR ---
Dr. Yung here talking with pt's family. Stated Dr. Mejia may want to take pt. back to OR. Tube feeding turned off just in case pt. does go to OR. VQ scan that was scheduled for today at 1730 is on hold for now.
[2019-09-30] MEDS ORDERED: acetaminophen 325mg tablet CORPAK PRN (16:54)
[2019-09-30] MEDS ORDERED: tizanidine 4mg tablet CORPAK PRN (16:55)
[2019-09-30] MEDS ORDERED: POTASSIUM BICARB 20meq eff tab 20 MEQ TABLET.EFF CORPAK PRN ×2 (16:57)
[2019-09-30] MEDS: acetaminophen 325mg tablet CORPAK PRN (16:59)
--- NOTE | 2019-09-30 18:06 | NUR ---
Pt's daughter, son and updated on plan of care continuously today.
--- NOTE | 2019-09-30 18:17 | NUR ---
Problems reprioritized. Patient report given, questions answered & plan of care reviewed with Letty MACIAS.
[2019-09-30] MEDS ORDERED: acetaminophen 1,000mg/100ml IV 100 ML IV STA (18:52)
[2019-09-30 19:14] LABS: BASOPHILS % (AUTO) 0.4 % (0-1); EOSINOPHILS # (AUTO) 0.3 X10'3 (0-0.9); HEMATOCRIT 26.1 % (42.0-52.0); HEMOGLOBIN 8.7 g/dl (14.0-17.9); LYMPHOCYTES # (AUTO) 0.9 X10'3 (1.1-4.8); LYMPHOCYTES % (AUTO) 15.5 % (21-51); MEAN CORPUSCULAR HEMOGLOBIN 26.6 PG (27.0-31.0); MEAN CORPUSCULAR HGB CONC 33.3 g/dL (33.0-36.5); MEAN CORPUSCULAR VOLUME 79.7 FL (78-98); MEAN PLATELET VOLUME 7.4 FL (7.4-10.4); MONOCYTES # (AUTO) 0.3 X10'3 (0-0.9); MONOCYTES % (AUTO) 5.5 % (2-12); NEUTROPHILS # (AUTO) 4.2 X10'3 (1.8-7.7); NEUTROPHILS % (AUTO) 73.6 % (42-75); PLATELET COUNT 70 X10'3 (140-440); RED BLOOD COUNT 3.27 X10'6 (4.70-6.10); RED CELL DISTRIBUTION WIDTH 20.8 % (11.5-14.5); WHITE BLOOD COUNT 5.8 X10'3 (4.5-11.0)
[2019-09-30 19:15] LABS: PARTIAL THROMBOPLASTIN TIME 59 SECONDS (22-32)
[2019-09-30 19:20] LABS: ALANINE AMINOTRANSFERASE 13 U/L (12-78); ALBUMIN 2.7 G/DL (3.4-5.0); ALKALINE PHOSPHATASE 40 IU/L (46-116); ANION GAP 9 (8-16); ASPARTATE AMINO TRANSFERASE 26 U/L (10-37); BILIRUBIN,TOTAL 0.6 MG/DL (0.1-1.0); BLOOD UREA NITROGEN 16 MG/DL (7-18); BUN/CREATININE RATIO 11.3 (5.4-32.0); CALCIUM 7.6 MG/DL (8.5-10.1); CHLORIDE 104 MMOL/L (99-107); CREATININE 1.42 MG/DL (0.60-1.10); GLUCOSE 181 MG/DL (70-104); MAGNESIUM 2.2 MG/DL (1.5-2.4); PHOSPHORUS 1.5 MG/DL (2.3-4.5); POTASSIUM 3.6 MMOL/L (3.5-5.1); SODIUM 138 MMOL/L (135-145); TOTAL CARBON DIOXIDE 25.1 MMOL/L (24-32); TOTAL PROTEIN 5.5 G/DL (6.4-8.2); eGFR 50 ML/MIN
[2019-09-30] MEDS: lactobacillus rhamnosus 10,000 MMU CELLS/CAPSULE PO SCH (19:44)
[2019-09-30] MEDS: famotidine/PF 10 mg/ml inj IV SCH (19:44)
[2019-09-30] MEDS: docusate sodium 100mg/10ml UD cup CORPAK SCH (19:44)
[2019-09-30] MEDS ORDERED: desflurane 240ml liquid inh. IH ONE (20:18)
[2019-09-30 20:32] LABS: TOTAL CELLS COUNTED 100
[2019-09-30 20:33] LABS: ANISOCYTOSIS 3+; ELLIPTOCYTES FEW; MICROCYTOSIS 1+; PLATELET ESTIMATE DECREASED; POLYCHROMASIA FEW
[2019-09-30 20:34] LABS: SCHISTOCYTES FEW
[2019-09-30] MEDS ORDERED: fentaNYL /PF 50mcg/ml 5ml ampule ONE (20:40)
[2019-09-30] MEDS: insulin glargine (Lantus) pen - multi-dose SQ SCH (21:00)
[2019-09-30] MEDS ORDERED: rocuronium 10mg/ml inj IV ONE (22:33)
[2019-09-30 23:16] LABS: BASOPHILS % (AUTO) 0.4 % (0-1); EOSINOPHILS # (AUTO) 0.4 X10'3 (0-0.9); EOSINOPHILS % (AUTO) 7.1 % (0-6); HEMATOCRIT 29.3 % (42.0-52.0); HEMOGLOBIN 9.8 g/dl (14.0-17.9); LYMPHOCYTES # (AUTO) 0.9 X10'3 (1.1-4.8); LYMPHOCYTES % (AUTO) 16.1 % (21-51); MEAN CORPUSCULAR HEMOGLOBIN 26.7 PG (27.0-31.0); MEAN CORPUSCULAR HGB CONC 33.5 g/dL (33.0-36.5); MEAN CORPUSCULAR VOLUME 79.6 FL (78-98); MEAN PLATELET VOLUME 7.2 FL (7.4-10.4); MONOCYTES # (AUTO) 0.3 X10'3 (0-0.9); MONOCYTES % (AUTO) 5.4 % (2-12); NEUTROPHILS # (AUTO) 4.1 X10'3 (1.8-7.7); PLATELET COUNT 74 X10'3 (140-440); RED BLOOD COUNT 3.68 X10'6 (4.70-6.10); RED CELL DISTRIBUTION WIDTH 20.9 % (11.5-14.5); WHITE BLOOD COUNT 5.8 X10'3 (4.5-11.0)
[2019-09-30 23:20] LABS: ALANINE AMINOTRANSFERASE 24 U/L (12-78); ALBUMIN 2.4 G/DL (3.4-5.0); ALBUMIN/GLOBULIN RATIO 0.9 (1.1-1.5); ALKALINE PHOSPHATASE 44 IU/L (46-116); ANION GAP 11 (8-16); ASPARTATE AMINO TRANSFERASE 42 U/L (10-37); BILIRUBIN,TOTAL 0.8 MG/DL (0.1-1.0); BLOOD UREA NITROGEN 16 MG/DL (7-18); BUN/CREATININE RATIO 10.2 (5.4-32.0); CALCIUM 7.3 MG/DL (8.5-10.1); CHLORIDE 104 MMOL/L (99-107); CREATININE 1.57 MG/DL (0.60-1.10); GLUCOSE 168 MG/DL (70-104); MAGNESIUM 1.9 MG/DL (1.5-2.4); PHOSPHORUS 1.9 MG/DL (2.3-4.5); POTASSIUM 3.3 MMOL/L (3.5-5.1); SODIUM 138 MMOL/L (135-145); TOTAL CARBON DIOXIDE 23.4 MMOL/L (24-32); eGFR 45 ML/MIN
[2019-10-01] VITALS (17 sets, daily range): BP systolic 81–160; BP diastolic 45–66
[2019-10-01 00:01] LABS: PARTIAL THROMBOPLASTIN TIME 52 SECONDS (22-32)
[2019-10-01] MEDS: piperacillin/tazo 3.375gm/50ml 50 ML IV SCH ×2 (01:00→07:48)
[2019-10-01] MEDS: HYDROmorphone/NS 1 mg/ml CADD 50 ML IV SCH ×7 (01:00→12:53)
[2019-10-01] MEDS: albumin (human) 25% 100ml IV 200 ML IV SCH (01:02)
[2019-10-01] MEDS: sodium bicarbonate (8.4%) inj. 75 MEQ in dextrose 5%-water 500 ML IV SCH (01:55)
[2019-10-01] MEDS ORDERED: mineral oil/petrolatum ophthal oint EACHEYE SCH (02:00)
[2019-10-01] MEDS: insulin Lispro (HumaLOG) vial - multi-dose SQ SCH (03:19)
[2019-10-01 03:20] LABS: HEMOGLOBIN 9.6 g/dl (14.0-17.9); MONOCYTES # (AUTO) 0.4 X10'3 (0-0.9); PLATELET COUNT 72 X10'3 (140-440)
[2019-10-01 03:22] LABS: BASOPHILS % (AUTO) 0.2 % (0-1); EOSINOPHILS # (AUTO) 0.5 X10'3 (0-0.9); EOSINOPHILS % (AUTO) 8.1 % (0-6); HEMATOCRIT 28.9 % (42.0-52.0); LYMPHOCYTES # (AUTO) 0.7 X10'3 (1.1-4.8); LYMPHOCYTES % (AUTO) 10.8 % (21-51); MEAN CORPUSCULAR HEMOGLOBIN 26.5 PG (27.0-31.0); MEAN CORPUSCULAR HGB CONC 33.1 g/dL (33.0-36.5); MEAN CORPUSCULAR VOLUME 80.1 FL (78-98); MEAN PLATELET VOLUME 7.4 FL (7.4-10.4); MONOCYTES % (AUTO) 5.9 % (2-12); NEUTROPHILS # (AUTO) 5.1 X10'3 (1.8-7.7); RED BLOOD COUNT 3.61 X10'6 (4.70-6.10); RED CELL DISTRIBUTION WIDTH 20.9 % (11.5-14.5); WHITE BLOOD COUNT 6.7 X10'3 (4.5-11.0)
[2019-10-01 03:43] LABS: PARTIAL THROMBOPLASTIN TIME 59 SECONDS (22-32)
[2019-10-01 03:46] LABS: ALANINE AMINOTRANSFERASE 22 U/L (12-78); ALBUMIN 3.1 G/DL (3.4-5.0); ALBUMIN/GLOBULIN RATIO 1.3 (1.1-1.5); ALKALINE PHOSPHATASE 36 IU/L (46-116); ANION GAP 10 (8-16); ASPARTATE AMINO TRANSFERASE 30 U/L (10-37); BLOOD UREA NITROGEN 16 MG/DL (7-18); BUN/CREATININE RATIO 10.6 (5.4-32.0); CALCIUM 7.4 MG/DL (8.5-10.1); CHLORIDE 103 MMOL/L (99-107); CREATININE 1.51 MG/DL (0.60-1.10); GLUCOSE 169 MG/DL (70-104); PHOSPHORUS 1.6 MG/DL (2.3-4.5); POTASSIUM 3.4 MMOL/L (3.5-5.1); SODIUM 138 MMOL/L (135-145); TOTAL CARBON DIOXIDE 25.1 MMOL/L (24-32); TOTAL PROTEIN 5.5 G/DL (6.4-8.2); eGFR 47 ML/MIN
[2019-10-01] MEDS ORDERED: potassium Cl 20 mEq/100mL bag IV ONE (04:00)
[2019-10-01] MEDS ORDERED: sodium phosphate inj. 15 MMOL in dextrose 5%-water 150 ML IV ONE (04:00)
[2019-10-01 04:01] LABS: ABG OXYGEN SATURATION 88.1 % (95-98); ABG PCO2 (T) 48.4 mmHg (35.0-45.0); ABG PH (T) 7.319 (7.350-7.450); ABG PO2 (T) 57.7 mmHg (83-108); FCOHb 0.3 % (0.5-1.5); FMetHb 0.3 % (0.3-1.12); FO2Hb 87.6 % (94-100); MINUTE VOLUME 9 L/min; PEEP 10 cm H2O; RESPIRATORY RATE 16 b/min; RESPIRATORY RATE (OBSERVED) 16 b/min; TIDAL VOLUME 475 mL; TOTAL HEMOGLOBIN 10.5 G/dl (14.0-17.9)
[2019-10-01 04:07] LABS: ANISOCYTOSIS 3+; ELLIPTOCYTES FEW; HYPOCHROMASIA 1+; PLATELET ESTIMATE DECREASED; POLYCHROMASIA FEW; TOTAL CELLS COUNTED 100
[2019-10-01] MEDS: acetaminophen 325mg tablet CORPAK PRN (06:06)
[2019-10-01] MEDS ORDERED: albumin (Human) 5% 250ml 500 ML IV ONE (06:58)
[2019-10-01] MEDS ORDERED: albumin (Human) 5% 250ml 250 ML IV ONE ×2 (07:00)
--- NOTE | 2019-10-01 07:06 | NUR ---
BP dropped. 1 L ns infused rapidly. Levo started. Message left for Dr. Yung. Dr. Mejia aware. Stat hemogram drawn. SP02 decreased. RT paged.
[2019-10-01] MEDS: ipratropium/albuterol 3ml nebule NEB SCH (07:11)
[2019-10-01 07:25] LABS: BASOPHILS % (AUTO) 0.2 % (0-1); EOSINOPHILS # (AUTO) 0.6 X10'3 (0-0.9); EOSINOPHILS % (AUTO) 8.6 % (0-6); HEMATOCRIT 25.6 % (42.0-52.0); HEMOGLOBIN 8.6 g/dl (14.0-17.9); LYMPHOCYTES # (AUTO) 0.6 X10'3 (1.1-4.8); LYMPHOCYTES % (AUTO) 9.3 % (21-51); MEAN CORPUSCULAR HEMOGLOBIN 26.7 PG (27.0-31.0); MEAN CORPUSCULAR HGB CONC 33.5 g/dL (33.0-36.5); MEAN CORPUSCULAR VOLUME 79.9 FL (78-98); MEAN PLATELET VOLUME 8.6 FL (7.4-10.4); MONOCYTES # (AUTO) 0.4 X10'3 (0-0.9); MONOCYTES % (AUTO) 6.4 % (2-12); NEUTROPHILS % (AUTO) 75.5 % (42-75); PLATELET COUNT 90 X10'3 (140-440); RED BLOOD COUNT 3.21 X10'6 (4.70-6.10); RED CELL DISTRIBUTION WIDTH 20.8 % (11.5-14.5); WHITE BLOOD COUNT 6.6 X10'3 (4.5-11.0)
[2019-10-01] MEDS: famotidine/PF 10 mg/ml inj IV SCH (07:32)
[2019-10-01] MEDS: hydrocortisone sod succ/PF 100mg/2ml inj. IV SCH ×2 (07:32→13:27)
[2019-10-01] MEDS: linezolid 600mg/300ml PREMIX 300 ML IV SCH (07:34)
[2019-10-01] MEDS: LIDOcaine 5% patch TP SCH (07:48)
[2019-10-01 07:51] LABS: ABG BASE EXCESS -3.7 mmol/L (-2.0-3.0); ABG HCO3 22.3 mmol/L (22.0-26.0); ABG PCO2 (T) 45.2 mmHg (35.0-45.0); ABG PH (T) 7.313 (7.350-7.450); ABG PO2 (T) 83.5 mmHg (83-108); FLOW 35 L/min; FMetHb 0.1 % (0.3-1.12); FO2Hb 94.9 % (94-100); MINUTE VOLUME 8 L/min; PATIENT TEMPERATURE 37.5; PEEP 13 cm H2O; RESPIRATORY RATE 16 b/min; RESPIRATORY RATE (OBSERVED) 16 b/min; TIDAL VOLUME 475 mL; TOTAL HEMOGLOBIN 9.5 G/dl (14.0-17.9)
[2019-10-01 07:51] LABS: OXYGEN SATURATION (MIXED VEN) 75.6 % (60-80); PO2 MIXED VENOUS (TEMP COR) 43.1 mmHg (35-46)
[2019-10-01] MEDS: heparin, porcine 5000 units/ml vial SQ SCH ×2 (07:53)
[2019-10-01] MEDS: docusate sodium 100mg/10ml UD cup CORPAK SCH (07:54)
[2019-10-01] MEDS: lactobacillus rhamnosus 10,000 MMU CELLS/CAPSULE PO SCH (07:55)
[2019-10-01] MEDS: K, MAG and/or Phos replacement - Verify level? MC SCH (08:00)
[2019-10-01] MEDS ORDERED: micafungin inj 100 MG in normal saline 100ml IV soln 100 ML IV SCH (08:00)
[2019-10-01 08:02] LABS: PLATELET ESTIMATE DECREASED
[2019-10-01 08:08] LABS: TOTAL CELLS COUNTED 100
[2019-10-01 08:10] LABS: ANISOCYTOSIS 3+; MICROCYTOSIS 1+
[2019-10-01 08:11] LABS: HYPOCHROMASIA 1+
[2019-10-01] MEDS: MEROPENEM 500MG/50ML-NS IVPB 50 ML IV SCH ×2 (08:38→13:27)
[2019-10-01] MEDS ORDERED: normal saline 1000ml 1,000 ML IV SCH (09:00)
[2019-10-01] MEDS: potassium cl 20mEq in 1/2 NS 1,000 ML IV SCH (09:35)
[2019-10-01] MEDS: diltiazem-NS 100mg/100ml 100 ML IV SCH (10:15)
[2019-10-01] MEDS ORDERED: CISatracurium besylate inj. 200 MG in normal saline 250ml IV soln 180 ML IV PRN (10:42)
--- NOTE | 2019-10-01 10:44 | NUR ---
consumer affairs manager working on transferring pt. to D now. Pt. just placed on [place] bed.
[2019-10-01] MEDS ORDERED: CISatracurium besylate inj. 100 MG in normal saline 100ml IV soln 90 ML IV PRN (10:50)
[2019-10-01] MEDS ORDERED: CISatracurium besylate inj. 100 MG in normal saline 100ml IV soln 90 ML IV SCH (10:55)
[2019-10-01 11:06] LABS: ABG BASE EXCESS -4.3 mmol/L (-2.0-3.0); ABG HCO3 21.4 mmol/L (22.0-26.0); ABG OXYGEN SATURATION 96.3 % (95-98); ABG PCO2 (T) 41.8 mmHg (35.0-45.0); ABG PH (T) 7.327 (7.350-7.450); ABG PO2 (T) 88.2 mmHg (83-108); FCOHb 0.3 % (0.5-1.5); FMetHb 0.3 % (0.3-1.12); FO2Hb 95.7 % (94-100); MINUTE VOLUME 9 L/min; PEEP 14 cm H2O; RESPIRATORY RATE 20 b/min; RESPIRATORY RATE (OBSERVED) 20 b/min; TIDAL VOLUME 425 mL; TOTAL HEMOGLOBIN 10.1 G/dl (14.0-17.9)
--- NOTE | 2019-10-01 13:58 | NUR ---
REACH here to take pt. to [facility]. RN called Dr. Mejia to confirm that wound vac can be dc'd and a wet to dry dressing placed. Dr. Mejia gave the order. Primary RN called and gave report to [facility]. Family at bedside.
[2019-10-01] MEDS ORDERED: DOPamine 400mg/D5W 250ml 250 ML IV ONE (14:29)
--- NOTE | 2019-10-01 14:29 | NUR ---
Pt is currently NPO, went back to OR last night. Pt is possibly transferring to a place that has ECMO if pts gets to a situation that can't ventilate him noted per MD. Resume TF as medically indicated to meet 100% of est. nutrition needs.Will continue to monitor. Rec: 1.Resume TF as medically indicated using Vital AF 1.2 Ike at goal rate of 80ml/hr;to provide 1920ml fluid,2304kcal,1555ml free water, and 144g protein. 2. Additional water flushes 125ml Q6H. 3. When extubate, advance diet per MD to carb controlled/low-residue 4. DM/ileostomy eds prior to d/c 5. monitor for ileostomy output post-op 6. daily wts; prealbumin qM/Th Addendum: 10/01/19 at [address] Amended: Links added. Addendum: 10/02/19 at 08[address] A [address] RD agree with note
--- NOTE | 2019-10-01 14:40 | NUR ---
REACH here getting ready to transport pt. to [facility].
--- NOTE | 2019-10-01 14:49 | NUR ---
[facility] . reach here to steel pickler pt report given. discussed with Dr Kaur that heart rate decreasing slowly, discussed may use dopamine for symptomatic bradycardia, sent with reach. BP boardline give albumin 5% per dr vital, sent with reach.
--- NOTE | 2019-10-01 15:22 | NUR ---
Pt. transferred to [facility] per REACH flight crew in ekzuan-ehy-eepucmuf condition on Versed, Dilaudid and a ventilator.
== END 2019-10-01 15:35 | disposition short-term general hospital (02) | DRG 853 ==
LOC: PAS IN 05:44 → EEVIPCON 05:44 → EDSTATUS 07:00 → ICU 2S 16:10
PROVIDERS: ADMIT Surgery; ATTEND Internal Medicine Cardiovascular Disease
PROC: 0D1B4Z4 Bypass Ileum to Cutaneous, Percutaneous Endoscopic Approach (ICD-10-PCS; 2019-09-27)
PROC: 0DBP4ZZ Excision of Rectum, Percutaneous Endoscopic Approach (ICD-10-PCS; 2019-09-27)
PROC: 0DBN4ZZ Excision of Sigmoid Colon, Percutaneous Endoscopic Approach (ICD-10-PCS; 2019-09-27)
PROC: 30233N1 Transfusion of Nonautologous Red Blood Cells into Peripheral Vein, Percutaneous Approach (ICD-10-PCS; 2019-09-27)
PROC: 02HV33Z Insertion of Infusion Device into Superior Vena Cava, Percutaneous Approach (ICD-10-PCS; 2019-09-27)
PROC: 009U3ZX Drainage of Spinal Canal, Percutaneous Approach, Diagnostic (ICD-10-PCS; 2019-09-27)
PROC: 0DBP8ZZ Excision of Rectum, Via Natural or Artificial Opening Endoscopic (ICD-10-PCS; principal; 2019-09-27 07:05)
PROC: 0T788DZ Dilation of Bilateral Ureters with Intraluminal Device, Via Natural or Artificial Opening Endoscopic (ICD-10-PCS; 2019-09-27 07:05)
PROC: 0DNU4ZZ Release Omentum, Percutaneous Endoscopic Approach (ICD-10-PCS; 2019-09-27 07:05)
PROC: 30233K1 Transfusion of Nonautologous Frozen Plasma into Peripheral Vein, Percutaneous Approach (ICD-10-PCS; 2019-09-28)
PROC: 5A09357 Assistance with Respiratory Ventilation, Less than 24 Consecutive Hours, Continuous Positive Airway Pressure (ICD-10-PCS; 2019-09-30)
PROC: 0BH17EZ Insertion of Endotracheal Airway into Trachea, Via Natural or Artificial Opening (ICD-10-PCS; 2019-09-30)
PROC: 5A1935Z Respiratory Ventilation, Less than 24 Consecutive Hours (ICD-10-PCS; 2019-09-30)
PROC: 0DBL4ZZ Excision of Transverse Colon, Percutaneous Endoscopic Approach (ICD-10-PCS; 2019-10-01)
DX: A41.9 Sepsis, unspecified organism (principal); K63.1 Perforation of intestine (nontraumatic); K65.8 Other peritonitis; J96.01 Acute respiratory failure with hypoxia; N17.9 Acute kidney failure, unspecified; R57.9 Shock, unspecified; R18.8 Other ascites; C20 Malignant neoplasm of rectum; C18.7 Malignant neoplasm of sigmoid colon; I48.91 Unspecified atrial fibrillation; D64.9 Anemia, unspecified; I10 Essential (primary) hypertension; E11.9 Type 2 diabetes mellitus without complications; K66.0 Peritoneal adhesions (postprocedural) (postinfection); E78.5 Hyperlipidemia, unspecified; I25.10 Atherosclerotic heart disease of native coronary artery without angina pectoris; E86.1 Hypovolemia; K62.1 Rectal polyp; K42.9 Umbilical hernia without obstruction or gangrene; D72.1 Eosinophilia; Z82.49 Family history of ischemic heart disease and other diseases of the circulatory system; Z79.4 Long term (current) use of insulin; Z90.89 Acquired absence of other organs
CPT/HCPCS: 45381; 93306; Z7506; Z7508; 36415; 36600; 71045; 74018; 76000; 80047; 80053; 80162; 81001; 82330; 82803; 82810; 82948; 83036; 83605; 83735; 83880; 84100; 84134; 84145; 84443; 84484; 85018; 85025; 85027; 85610; 85730; 86885; 86900; 86901; 86920; 87040; 87070; 87075; 87081; 87088; 93005; 93308; 93970; 94002; 94003; 94640; 94660; 94668; 94760; 97110; 97116; 97161; 97530; A4215; A4355; A4402; A4421; A4618; A6222; A6258; A6449; A6550; A7000; C1758; C1769; C1773; C9290; C9399; G0378; J0131; J0282; J0690; J0694; J1100; J1160; J1170; J1265; J1450; J1644; J1650; J1720; J1815; J1885; J2001; J2020; J2175; J2185; J2212; J2248; J2250; J2270; J2405; J2543; J2704; J2710; J3010; J3475; J3480; J3490; J7030; J7050; J7060; J7120; P9016; P9045; P9047; P9059; Q0112; Q9967

== ENCOUNTER 2019-11-11 22:31 | Emergency (ER) | payer BC ==
[~2019-11-11] VITALS: Ht 172.7 cm; Wt 59.1 kg
[~2019-11-11 22:31] MED LIST changes: -ceFOXitin 2 GM ADDvantage bag 100 ML IV ONE; -famotidine 20mg tablet PO ONE; -ringers solution, lacted 1,000 ML IV SCH
[2019-11-11 22:34] VITALS: BP 156/65
[2019-11-11] MEDS ORDERED: normal saline 1000ML IV soln IVB ONE (22:40)
[2019-11-12 00:16] LABS: BASOPHILS # (AUTO) 0.1 X10'3 (0-0.2); BASOPHILS % (AUTO) 1.2 % (0-1); EOSINOPHILS # (AUTO) 0.2 X10'3 (0-0.9); EOSINOPHILS % (AUTO) 1.9 % (0-6); HEMATOCRIT 24.3 % (42.0-52.0); HEMOGLOBIN 8.2 g/dl (14.0-17.9); LYMPHOCYTES % (AUTO) 27.6 % (21-51); MEAN CORPUSCULAR HEMOGLOBIN 27.4 PG (27.0-31.0); MEAN CORPUSCULAR HGB CONC 33.8 g/dL (33.0-36.5); MEAN CORPUSCULAR VOLUME 80.9 FL (78-98); MEAN PLATELET VOLUME 6.2 FL (7.4-10.4); MONOCYTES # (AUTO) 1.2 X10'3 (0-0.9); MONOCYTES % (AUTO) 11.1 % (2-12); NEUTROPHILS # (AUTO) 6.2 X10'3 (1.8-7.7); NEUTROPHILS % (AUTO) 58.2 % (42-75); PLATELET COUNT 426 X10'3 (140-440); RED BLOOD COUNT 3.01 X10'6 (4.70-6.10); WHITE BLOOD COUNT 10.7 X10'3 (4.5-11.0)
[2019-11-12 00:25] LABS: ALANINE AMINOTRANSFERASE 49 U/L (12-78); ALBUMIN 2.2 G/DL (3.4-5.0); ALBUMIN/GLOBULIN RATIO 0.5 (1.1-1.5); ALKALINE PHOSPHATASE 119 IU/L (46-116); ANION GAP 7 (8-16); ASPARTATE AMINO TRANSFERASE 27 U/L (10-37); BILIRUBIN,TOTAL 0.2 MG/DL (0.1-1.0); BLOOD UREA NITROGEN 33 MG/DL (7-18); BUN/CREATININE RATIO 23.1 (5.4-32.0); CALCIUM 9.7 MG/DL (8.5-10.1); CHLORIDE 104 MMOL/L (99-107); CREATININE 1.43 MG/DL (0.60-1.10); GLUCOSE 332 MG/DL (70-104); MAGNESIUM 1.2 MG/DL (1.5-2.4); PHOSPHORUS 3.6 MG/DL (2.3-4.5); POTASSIUM 4.7 MMOL/L (3.5-5.1); SODIUM 132 MMOL/L (135-145); TOTAL CARBON DIOXIDE 21.5 MMOL/L (24-32); TOTAL PROTEIN 6.8 G/DL (6.4-8.2); eGFR 50 ML/MIN
[2019-11-12 00:27] LABS: CLARITY,URINE CLEAR (Clear); COLOR,URINE YELLOW (Yellow); GLUCOSE, URINE 250 mg/dl (Neg); KETONES,URINE NEGATIVE (Neg); LEUKOCYTE ESTERASE ,URINE NEGATIVE (Neg); NITRITES, URINE NEGATIVE (Neg); OCCULT BLOOD,URINE NEGATIVE (Neg); PH,URINE 5.5 (4.8-8.0); PROTEIN,URINE TRACE mg/dl (Neg); UROBILINOGEN,URINE 0.2 E.U/dL (0.2-1.0)
[2019-11-12 00:36] LABS: UA COLLECTION TYPE URINAL
[2019-11-12 00:39] LABS: WBC,URINE 0-4 /HPF (0-4)
[2019-11-12 00:40] LABS: BACTERIA,URINE FEW /HPF (Neg); COARSE GRANULAR CAST 0-3 /LPF (NEGATIVE); RBC,URINE NONE SEEN /HPF (0-2); SQUAMOUS EPITHELIAL CELL,UR FEW /LPF (FEW)
[2019-11-12] MEDS ORDERED: normal saline 1000ML IV soln IVB ONE (00:55)
[2019-11-12 01:16] LABS: ANISOCYTOSIS 3+; PLATELET ESTIMATE NORMAL
[2019-11-13] MEDS ORDERED: CARV-50 PO (08:25)
[2019-11-13] MEDS ORDERED: MULT1TAB74 PO (08:25)
[2019-11-13] MEDS ORDERED: IRON1CAP36 PO (08:26)
== END 2019-11-12 01:31 | disposition home or self-care (01) ==
LOC: ER 22:32 → EEVIPCON 22:32 → ER 11-12 01:31
DX: D64.9 Anemia, unspecified (principal); E86.0 Dehydration; E87.1 Hypo-osmolality and hyponatremia; Z98.890 Other specified postprocedural states; Z88.8 Allergy status to other drugs, medicaments and biological substances; Z79.4 Long term (current) use of insulin
CPT/HCPCS: 36415; 80053; 81001; 83735; 84100; 85025; 96360; 99283; J7030; J7040

== ENCOUNTER 2019-11-13 07:19 | Day surgery (SDC) | payer BC ==
[~2019-11-13] VITALS: Ht 172.7 cm; Wt 59.1 kg
[2019-11-13 07:35] VITALS: BP 151/61
[2019-11-13] MEDS ORDERED: CARV-50 PO (08:25)
[2019-11-13] MEDS ORDERED: MULT1TAB74 PO (08:25)
[2019-11-13] MEDS ORDERED: IRON1CAP36 PO (08:26)
[2019-11-13 10:05] LABS: ALANINE AMINOTRANSFERASE 39 U/L (12-78); ALBUMIN 2.4 G/DL (3.4-5.0); ALBUMIN/GLOBULIN RATIO 0.5 (1.1-1.5); ALKALINE PHOSPHATASE 109 IU/L (46-116); ANION GAP 9 (8-16); ASPARTATE AMINO TRANSFERASE 24 U/L (10-37); BILIRUBIN,TOTAL 0.2 MG/DL (0.1-1.0); BLOOD UREA NITROGEN 20 MG/DL (7-18); BUN/CREATININE RATIO 16.9 (5.4-32.0); CALCIUM 10.2 MG/DL (8.5-10.1); CHLORIDE 107 MMOL/L (99-107); CREATININE 1.18 MG/DL (0.60-1.10); GLUCOSE 149 MG/DL (70-104); POTASSIUM 4.6 MMOL/L (3.5-5.1); SODIUM 137 MMOL/L (135-145); TOTAL CARBON DIOXIDE 21.5 MMOL/L (24-32); TOTAL PROTEIN 7.4 G/DL (6.4-8.2); eGFR 62 ML/MIN
[2019-11-13 10:12] LABS: GLUCOSE,BODY FLUID 217 MG/DL; TOTAL PROTEIN,BODY FLUID 2.8 G/DL
== END 2019-11-13 10:15 | disposition home or self-care (01) ==
LOC: EEVIPCON 07:19 → SSTAY O 07:19
PROVIDERS: ATTEND Radiology Diagnostic Radiology
DX: R18.8 Other ascites (principal); I10 Essential (primary) hypertension; E11.9 Type 2 diabetes mellitus without complications; Z85.038 Personal history of other malignant neoplasm of large intestine; Z88.8 Allergy status to other drugs, medicaments and biological substances; Z93.2 Ileostomy status; Z79.4 Long term (current) use of insulin; Z79.899 Other long term (current) drug therapy
CPT/HCPCS: 36415; 49406; 75989; 76942; 80053; 82945; 84157; 87070; 87075

== ENCOUNTER 2019-11-18 17:38 | Outpatient (CLI) | payer BC ==
[~2019-11-18 17:38] MED LIST changes: -AMLO2.5T2 PO; -BENA40TA8 PO; +CARV-50 PO; +IRON1CAP36 PO; -METF-438 PO; +MULT1TAB74 PO
== END 2019-11-18 23:59 | disposition home or self-care (01) ==
LOC: LAB SPEC 17:38
PROVIDERS: ATTEND Radiology Diagnostic Radiology
DX: C77.2 Secondary and unspecified malignant neoplasm of intra-abdominal lymph nodes (principal); C18.7 Malignant neoplasm of sigmoid colon; I10 Essential (primary) hypertension; E11.9 Type 2 diabetes mellitus without complications; Z98.890 Other specified postprocedural states
CPT/HCPCS: 84478

== ENCOUNTER 2020-03-25 08:39 | Day surgery (SDC) | payer BC ==
[~2020-03-25] VITALS: Ht 172.7 cm; Wt 62.0 kg
[2020-03-25] VITALS (11 sets, daily range): BP systolic 145–225; BP diastolic 56–88
[~2020-03-25 08:39] MED LIST changes: +MULT-620 PO; -MULT1TAB74 PO
[2020-03-25] MEDS ORDERED: normal saline 1000ml 1,000 ML IV PRN (09:00)
[2020-03-25] MEDS ORDERED: PROC10TA10 PO (09:14)
[2020-03-25] MEDS ORDERED: REPA2TAB12 PO (09:14)
[2020-03-25] MEDS ORDERED: ONDA8TAB65 PO (09:14)
[2020-03-25] MEDS ORDERED: BENA20TA82 PO (09:14)
[2020-03-25] MEDS ORDERED: normal saline 1000ml 1,000 ML IV SCH (10:05)
[2020-03-25 10:09] LABS: BASOPHILS # (AUTO) 0.1 X10'3 (0-0.2); BASOPHILS % (AUTO) 0.9 % (0-1); EOSINOPHILS # (AUTO) 0.2 X10'3 (0-0.9); EOSINOPHILS % (AUTO) 4.2 % (0-6); HEMATOCRIT 32.2 % (42.0-52.0); HEMOGLOBIN 10.7 g/dl (14.0-17.9); LYMPHOCYTES # (AUTO) 2.2 X10'3 (1.1-4.8); LYMPHOCYTES % (AUTO) 37.9 % (21-51); MEAN CORPUSCULAR HGB CONC 33.3 g/dL (33.0-36.5); MEAN CORPUSCULAR VOLUME 86.9 FL (78-98); MEAN PLATELET VOLUME 6.6 FL (7.4-10.4); MONOCYTES # (AUTO) 1.2 X10'3 (0-0.9); MONOCYTES % (AUTO) 19.7 % (2-12); NEUTROPHILS # (AUTO) 2.2 X10'3 (1.8-7.7); NEUTROPHILS % (AUTO) 37.3 % (42-75); PLATELET COUNT 169 X10'3 (140-440); RED CELL DISTRIBUTION WIDTH 18.8 % (11.5-14.5); WHITE BLOOD COUNT 5.9 X10'3 (4.5-11.0)
[2020-03-25 10:24] LABS: ALANINE AMINOTRANSFERASE 18 U/L (12-78); ALBUMIN 3.3 G/DL (3.4-5.0); ALBUMIN/GLOBULIN RATIO 0.7 (1.1-1.5); ALKALINE PHOSPHATASE 104 IU/L (46-116); ANION GAP 10 (8-16); ASPARTATE AMINO TRANSFERASE 31 U/L (10-37); BILIRUBIN,TOTAL 0.4 MG/DL (0.1-1.0); BLOOD UREA NITROGEN 20 MG/DL (7-18); BUN/CREATININE RATIO 15.2 (5.4-32.0); CALCIUM 9.9 MG/DL (8.5-10.1); CHLORIDE 104 MMOL/L (99-107); CREATININE 1.32 MG/DL (0.60-1.10); GLUCOSE 188 MG/DL (70-104); POTASSIUM 4.3 MMOL/L (3.5-5.1); SODIUM 135 MMOL/L (135-145); TOTAL CARBON DIOXIDE 20.9 MMOL/L (24-32); TOTAL PROTEIN 8.3 G/DL (6.4-8.2); eGFR 55 ML/MIN
[2020-03-25] MEDS ORDERED: fentaNYL/PF 50MCG/1 ML 2ML syringe ONE ×2 (10:45→11:06)
[2020-03-25] MEDS ORDERED: hydrALAZINE 20mg/ml inj. IV ONE (11:09)
[2020-03-25] MEDS ORDERED: ondansetron/PF 4mg/2ml inj ONE (11:24)
[2020-03-25 11:26] LABS: TOTAL CELLS COUNTED 100
[2020-03-25 11:27] LABS: ANISOCYTOSIS 2+; PLATELET ESTIMATE NORMAL
[2020-03-25] MEDS ORDERED: HYDROcodone/acetaminophen 5mg/325mg tablet PO PRN (11:35)
== END 2020-03-25 12:00 | disposition home or self-care (01) ==
LOC: SSTAY O 08:39 → EEVIPCON 08:39 → MED 3N 08:43 → SSTAY O 12:00
PROVIDERS: ATTEND Radiology Diagnostic Radiology
DX: C79.89 Secondary malignant neoplasm of other specified sites (principal); C18.9 Malignant neoplasm of colon, unspecified; R93.5 Abnormal findings on diagnostic imaging of other abdominal regions, including retroperitoneum; Z90.49 Acquired absence of other specified parts of digestive tract; Z88.8 Allergy status to other drugs, medicaments and biological substances; Z79.899 Other long term (current) drug therapy; Z79.4 Long term (current) use of insulin
CPT/HCPCS: 36415; 49180; 77012; 80053; 82948; 85025; 85610; J0360; J2405; J3010; J7030; 20206; 27040

== ENCOUNTER 2020-12-11 21:31 | Inpatient (IN) | payer BC, MEDICARE, OTHER ==
[~2020-12-11] VITALS: Ht 172.7 cm; Wt 71.1 kg
[~2020-12-11 21:31] MED LIST changes: +BENA20TA82 PO; +ONDA8TAB65 PO; +PROC10TA10 PO; +REPA2TAB12 PO
[2020-12-11] MEDS ORDERED: LIDOcaine 2% 10ml TOPICAL JELLY (Urojet) TP ONE (22:30)
[2020-12-11] MEDS ORDERED: potassium Cl 40MEQ/250ML bag 270 ML IV PRN ×2 (22:30)
[2020-12-11] MEDS ORDERED: acetaminophen 325mg tablet PO PRN (22:30)
[2020-12-11] MEDS ORDERED: morphine 4 MG/ML inj SYRINge IV PRN (22:30)
[2020-12-11] MEDS ORDERED: potassium Cl 20 mEq SR tablet PO PRN ×2 (22:30)
[2020-12-11] MEDS ORDERED: ondansetron/PF 4mg/2ml inj IV PRN (22:30)
[2020-12-11] MEDS ORDERED: morphine 2 MG/ML inj. syringe IV PRN (22:30)
[2020-12-11] MEDS ORDERED: dextrose ORAL solution 15 GM/59 ML bottle PO PRN ×2 (22:40)
[2020-12-11] MEDS ORDERED: FENTANYL-0.9 % NACL/PF 100 ML IV PRN (22:40)
[2020-12-11] MEDS ORDERED: MESSAGE TO PHARMACY PO ONE (22:40)
[2020-12-11] MEDS ORDERED: ipratropium/albuterol 3ml nebule NEB PRN (22:40)
[2020-12-11] MEDS ORDERED: glucagon, human recombinant 1mg kit SUBCUT PRN (22:40)
[2020-12-11] MEDS ORDERED: insulin Lispro (HumaLOG) vial - multi-dose SQ SCH (22:40)
[2020-12-11] MEDS ORDERED: dextrose 50%-water 50ml dispensing syringe IV PRN (22:40)
[2020-12-11] MEDS ORDERED: midazolam 100mg in NS 100ml 100 ML IV PRN (22:40)
[2020-12-11] MEDS ORDERED: NORepinephrine 8mg/ 250ml NS 250 ML IV ONE (23:47)
[2020-12-12] VITALS (30 sets, daily range): BP systolic 85–129; BP diastolic 37–63
[2020-12-12] MEDS ORDERED: sodium bicarbonate (8.4%) 1 mEq/ml syringe IV ONE (00:50)
[2020-12-12] MEDS: piperacillin/tazo 3.375gm/50ml 50 ML IV SCH ×2 (00:52→08:02)
[2020-12-12] MEDS: NORepinephrine 8mg/ 250ml NS 250 ML IV SCH ×4 (01:00→10:41)
[2020-12-12] MEDS: K, MAG and/or Phos replacement - Verify level? MC SCH ×2 (01:04→08:00)
--- NOTE | 2020-12-12 02:11 | NUR ---
[id number]. 2335: Patient here from [facility] into [facility] CICU 2012. I have received report from transferring RN and flight crew and had the opportunity to ask questions and assume patient care. Placed on monitor, on ventilator per respiratory. On max dose of levophed and vasopressin upon arrival infusing via PICC line. Weak gag to ETT suction, not following commands. 0115: Patient family at bedside, questions answered, update given. Titrating pressors down as tolerated. Vasopressin off at this time. Midazolam infusing for ventilator synchrony. Will continue to monitor closely. 0211:Titrating Levophed as tolerated per MD order. Patient's family at bedside.
--- NOTE | 2020-12-12 03:44 | NUR ---
Patient temp still low despite warm blankets. Warming blanket placed. Sats improved when turned patient onto L side.
[2020-12-12 04:02] LABS: HEMOGLOBIN 9.6 g/dl (14.0-17.9); LYMPHOCYTES # (AUTO) 0.1 X10'3 (1.1-4.8); NEUTROPHILS # (AUTO) 0.1 X10'3 (1.8-7.7)
[2020-12-12 04:04] LABS: ALANINE AMINOTRANSFERASE 22 U/L (12-78); ALBUMIN 1.6 G/DL (3.4-5.0); ALBUMIN/GLOBULIN RATIO 0.7 (1.1-1.5); ALKALINE PHOSPHATASE 88 IU/L (46-116); ANION GAP 16 (8-16); ASPARTATE AMINO TRANSFERASE 80 U/L (10-37); BASOPHILS % (AUTO) 0.2 % (0-1); BLOOD UREA NITROGEN 81 MG/DL (7-18); BUN/CREATININE RATIO 35.5 (5.4-32.0); CALCIUM 7.3 MG/DL (8.5-10.1); CHLORIDE 117 MMOL/L (99-107); CREATININE 2.28 MG/DL (0.60-1.10); EOSINOPHILS % (AUTO) 9.2 % (0-6); GLUCOSE 139 MG/DL (70-104); HEMATOCRIT 29.1 % (42.0-52.0); MAGNESIUM 1.9 MG/DL (1.5-2.4); MEAN CORPUSCULAR HEMOGLOBIN 28.8 PG (27.0-31.0); MEAN CORPUSCULAR VOLUME 87.4 FL (78-98); MEAN PLATELET VOLUME 12.2 FL (7.4-10.4); MONOCYTES % (AUTO) 2.4 % (2-12); NEUTROPHILS % (AUTO) 43.2 % (42-75); PHOSPHORUS 5.6 MG/DL (2.3-4.5); POTASSIUM 4.3 MMOL/L (3.5-5.1); RED BLOOD COUNT 3.32 X10'6 (4.70-6.10); SODIUM 148 MMOL/L (135-145); eGFR 29 ML/MIN
[2020-12-12 04:36] LABS: HEMOGLOBIN A1C 6.1 % (4.5-6.2)
[2020-12-12 04:40] LABS: WHITE BLOOD COUNT 0.3 X10'3 (4.5-11.0)
[2020-12-12 04:41] LABS: PLATELET COUNT 3 X10'3 (140-440)
[2020-12-12] MEDS ORDERED: INSU100V43 SQ (04:46)
[2020-12-12] MEDS ORDERED: FERR325T32 PO (04:49)
--- NOTE | 2020-12-12 04:58 | NUR ---
Zena updated on current labs including critical values and hemodynamics. Orders received. Patient family at bedside.
[2020-12-12] MEDS: vasopressin inj. 40 UNIT in normal saline 50ml IV soln 38 ML IV SCH (06:20)
--- NOTE | 2020-12-12 06:20 | NUR ---
Problems reprioritized. Patient report given, questions answered & plan of care reviewed with Li MACIAS.
[2020-12-12] MEDS: pantoprazole 40 MG vial IV SCH (07:15)
[2020-12-12] MEDS: fluconazole-Diflucan 200mg/NS 100 ML IV SCH (07:15)
--- NOTE | 2020-12-12 07:40 | NUR ---
Patient Lactic 4.2, Dr. Wilkins notified, no new orders
[2020-12-12] MEDS ORDERED: linezolid 600mg/300ml PREMIX 300 ML IV SCH (08:00)
--- NOTE | 2020-12-12 10:00 | NUR ---
Patient has sensor in left elbow that sonSalvatroe is able to see updated blood sugars via cellphone.
[2020-12-12] MEDS ORDERED: TBO-filgrastim 480 MCG/0.8ml syringe SQ ONE (10:05)
[2020-12-12] MEDS ORDERED: vancomycin 1,750 MG in NS 350ml IV soln IV ONE (10:30)
[2020-12-12] MEDS ORDERED: Dextrose 10%-water IV solution 1,000 ML IV SCH (10:35)
[2020-12-12] MEDS: sodium bicarbonate (8.4%) inj. 150 MEQ in dextrose 5%-water 1,000 ML IV SCH (11:33)
[2020-12-12] MEDS: cefepime 1GM/NS ADD-VANTAGE 100 ML IV SCH (11:34)
--- NOTE | 2020-12-12 11:42 | NUR ---
Patient converted to Afib, called Dr. Wilkins to report. Patient Heart rate 80's, no new orders at this time.
[2020-12-12] MEDS ORDERED: magnesium 2GM in 50ml NS 50 ML IV PRN (11:50)
[2020-12-12] MEDS ORDERED: Dextrose 10%-water IV solution 1,000 ML IV PRN (11:50)
[2020-12-12] MEDS ORDERED: magnesium 4gm in 100ml NS 100 ML IV PRN (11:50)
[2020-12-12] MEDS ORDERED: magnesium Cl slow-release 64mg tablet PO PRN (11:50)
[2020-12-12] MEDS: NORepinephrine inj. 32 MG in normal saline 250ml IV soln 218 ML IV SCH ×2 (12:26→18:42)
--- NOTE | 2020-12-12 12:55 | NUR ---
Wound consult: Pt with a low Stevenson of 10. Per physical assessment pt with ARIE drain to abdomen. No wound care consult or further wounds documented. TPN consult: Pt with a PICC and intubated. TPN recommendations below have been d/w clinical pharmacist. Pt with worsening LEIGH per MD note, recommend non-electrolyte formula as per MD note pt not to begin dialysis. Pt admit with advanced colon cancer with metastasis, with an ileostomy in place per H&P. All per H&P: pt was admitted to [facility] on December 08 for increasing confusion, hallucinations, loss in appetite, and general inability to thrive at home; in addition to the intra-abdominal infection pt having issues with yeast phillips in the mouth and esophagus; pt was having issues with intermittent vomiting during his stay at [facility] and apparently must have aspirated, causing an aspiration pneumonitis; and CT scan results showed significant tumor progression and new significant dilation of the stomach and small bowel with small loops of bowel in the pelvis, which the radiologist interpreted as a developing partial small bowel obstruction secondary to probable mass-effect. LBM 12/12, documented with diarrhea though no documentation of stool output in I&O. Will continue to follow closely and make recommendations as appropriate. Recommendations: 1) Continuos 3:1 Climinix non-E 04/15 with 100 mL 20% intralipids with goal rate of 90 mL/hr. To begin at 30 mL/hr and advance to goal rate after 12 hours if pt tolerating. Once at goal to provide: 2160 mL total volume/day, 2015 kcal, 103 g AA, 411 g dextrose (4.01 mg/kg/min), and 21 g lipids 2) Prealbumin a TG q Monday/ 3) Daily weights 4) Monitor electrolytes and need for replacement Addendum: 12/12/20 at [address] Amended: Links added.
[2020-12-12 15:33] LABS: ALANINE AMINOTRANSFERASE 34 U/L (12-78); ALBUMIN 1.2 G/DL (3.4-5.0); ALBUMIN/GLOBULIN RATIO 0.5 (1.1-1.5); ALKALINE PHOSPHATASE 70 IU/L (46-116); ANION GAP 20 (8-16); ASPARTATE AMINO TRANSFERASE 249 U/L (10-37); BILIRUBIN,TOTAL 1.5 MG/DL (0.1-1.0); BLOOD UREA NITROGEN 81 MG/DL (7-18); BUN/CREATININE RATIO 31.3 (5.4-32.0); CALCIUM 7.2 MG/DL (8.5-10.1); CHLORIDE 115 MMOL/L (99-107); CREATININE 2.59 MG/DL (0.60-1.10); GLUCOSE 112 MG/DL (70-104); PHOSPHORUS 7.8 MG/DL (2.3-4.5); POTASSIUM 5.5 MMOL/L (3.5-5.1); SODIUM 145 MMOL/L (135-145); TOTAL PROTEIN 3.5 G/DL (6.4-8.2); TRIGLYCERIDES 98 MG/DL (20-135); eGFR 25 ML/MIN
[2020-12-12 15:35] LABS: TOTAL CARBON DIOXIDE 10.4 MMOL/L (24-32)
[2020-12-12 15:40] LABS: PREALBUMIN 5.3 MG/DL (19-36)
[2020-12-12] MEDS: dextrose 50%-water 50ml dispensing syringe IV PRN ×3 (17:14→23:06)
--- NOTE | 2020-12-12 17:30 | NUR ---
patient's blood glucose was 63. gave half amp of dex and rechecked blood sugar 15 min later. BG 71
--- NOTE | 2020-12-12 18:30 | NUR ---
Patient in room CICU 2013. I have received report from Li MACIAS and had the opportunity to ask questions and assume patient care.
--- NOTE | 2020-12-12 19:45 | NUR ---
Patient has blood glucose monitor in right arm that son is scanning q30 minutes. Per son he requests to not have his dads finger poked and go off the monitor in right arm.
--- NOTE | 2020-12-12 20:30 | NUR ---
Patient moved to 2037 with all effects, connected to monitor.
[2020-12-12] MEDS ORDERED: [UNRECOGNIZED DRUG - REMARK] IV SCH ×5 (21:00)
[2020-12-12] MEDS ORDERED: insulin glargine (Lantus) pen - multi-dose SQ SCH (21:00)
--- NOTE | 2020-12-12 21:00 | NUR ---
Patients and son request that I not give him a bath tonight. Will wipe down all cords and provide gomez care.
--- NOTE | 2020-12-12 23:30 | NUR ---
blood sugar 59. Dextrose given per MD order.
[2020-12-13] VITALS (9 sets, daily range): BP systolic 102–134; BP diastolic 43–60
[2020-12-13] MEDS: NORepinephrine inj. 32 MG in normal saline 250ml IV soln 218 ML IV SCH ×2 (01:34→07:18)
[2020-12-13 01:44] LABS: LYMPHOCYTES # (AUTO) 0.3 X10'3 (1.1-4.8); MEAN CORPUSCULAR HEMOGLOBIN 29.5 PG (27.0-31.0); RED BLOOD COUNT 2.28 X10'6 (4.70-6.10)
[2020-12-13 01:45] LABS: BASOPHILS % (AUTO) 0.2 % (0-1); EOSINOPHILS % (AUTO) 3.9 % (0-6); LYMPHOCYTES % (AUTO) 34.1 % (21-51); MEAN CORPUSCULAR HGB CONC 31.3 g/dL (33.0-36.5); MEAN CORPUSCULAR VOLUME 94.2 FL (78-98); MEAN PLATELET VOLUME 8.9 FL (7.4-10.4); MONOCYTES % (AUTO) 1.4 % (2-12); NEUTROPHILS # (AUTO) 0.6 X10'3 (1.8-7.7); NEUTROPHILS % (AUTO) 60.4 % (42-75); RED CELL DISTRIBUTION WIDTH 18.6 % (11.5-14.5)
[2020-12-13 01:53] LABS: HEMATOCRIT 21.5 % (42.0-52.0); HEMOGLOBIN 6.7 g/dl (14.0-17.9); PLATELET COUNT 22 X10'3 (140-440)
[2020-12-13 01:59] LABS: ALANINE AMINOTRANSFERASE 502 U/L (12-78); ALBUMIN 1.2 G/DL (3.4-5.0); ALBUMIN/GLOBULIN RATIO 0.5 (1.1-1.5); ALKALINE PHOSPHATASE 166 IU/L (46-116); ANION GAP 22 (8-16); BILIRUBIN,TOTAL 1.9 MG/DL (0.1-1.0); BLOOD UREA NITROGEN 81 MG/DL (7-18); BUN/CREATININE RATIO 27.7 (5.4-32.0); CALCIUM 7.1 MG/DL (8.5-10.1); CHLORIDE 113 MMOL/L (99-107); CREATININE 2.92 MG/DL (0.60-1.10); GLUCOSE 110 MG/DL (70-104); MAGNESIUM 2.1 MG/DL (1.5-2.4); PHOSPHORUS 8.9 MG/DL (2.3-4.5); POTASSIUM 5.9 MMOL/L (3.5-5.1); SODIUM 143 MMOL/L (135-145); TOTAL PROTEIN 3.4 G/DL (6.4-8.2); eGFR 22 ML/MIN
[2020-12-13] MEDS: mineral oil/petrolatum ophthal oint EACHEYE SCH ×2 (02:06→07:15)
[2020-12-13 02:24] LABS: TOTAL CARBON DIOXIDE 8.2 MMOL/L (24-32)
--- NOTE | 2020-12-13 02:47 | NUR ---
called critical HGB, HCT, PLTS, and PH to Jorge Hsu NP. No new orders at this time.
[2020-12-13 02:54] LABS: ASPARTATE AMINO TRANSFERASE 5965 U/L (10-37)
[2020-12-13] MEDS ORDERED: atropine 0.1mg/ml 10ml syringe ONE (02:56)
[2020-12-13] MEDS: vasopressin inj. 40 UNIT in normal saline 50ml IV soln 38 ML IV SCH (02:58)
[2020-12-13] MEDS: dextrose 50%-water 50ml dispensing syringe IV PRN ×5 (03:03→07:26)
[2020-12-13 03:11] LABS: ANISOCYTOSIS 2+; NUCLEATED RED BLOOD CELLS 9 /100WBC (0-0); PLATELET ESTIMATE DECREASED; TOTAL CELLS COUNTED 100
[2020-12-13 03:12] LABS: BURR CELLS 3+; TOXIC GRANULATION 1+
[2020-12-13] MEDS: sodium bicarbonate (8.4%) inj. 150 MEQ in dextrose 5%-water 1,000 ML IV SCH ×2 (03:33→05:35)
--- NOTE | 2020-12-13 04:04 | NUR ---
family at bedside. Will continue to monitor closely
--- NOTE | 2020-12-13 06:00 | NUR ---
Patient appeared to have seizure lasting approx 30 seconds. Medicated per MD order.
--- NOTE | 2020-12-13 06:35 | NUR ---
Problems reprioritized. Patient report given, questions answered & plan of care reviewed with day shift.
[2020-12-13] MEDS: pantoprazole 40 MG vial IV SCH (07:09)
[2020-12-13] MEDS: cefepime 1GM/NS ADD-VANTAGE 100 ML IV SCH (07:09)
[2020-12-13] MEDS ORDERED: TBO-filgrastim 480 MCG/0.8ml syringe SQ SCH (08:00)
[2020-12-13] MEDS ORDERED: sodium bicarbonate (8.4%) 1 mEq/ml syringe IV ONE (08:05)
[2020-12-13] MEDS: fluconazole-Diflucan 200mg/NS 100 ML IV SCH (08:09)
[2020-12-13] MEDS ORDERED: LORazepam 2 mg/ml vial IV PRN (08:45)
[2020-12-13] MEDS ORDERED: morphine 10mg/ml inj. IV PRN (08:45)
[2020-12-13] MEDS ORDERED: LORazepam 2 mg/ml vial IV ONE (08:45)
--- NOTE | 2020-12-13 09:29 | NUR ---
0600- Received report from Vannesa and [facility] care o patient. 0700- Patient dusky, no corneal reflex, generalized pitting edema, weeping from back to buttocks, DTI to coccyx, mottling to everywhere a pillow is touching, fluid filled blister to LLE, diffuse petechiae present. Multiple family at bedside. Continue to treat hypoglycemia with D50. Blood sugar being monitored by continuous blood sugar michael on son's phone. 0845- 2 amps HCO3 push given. 0900- Dr Wilkins here having a conference with family. Explaining the gravity of the situation and what comfort care will look like. 15- Ativan given for seizure, morphine for comfort, decreased pressors by half rate. Monitor off in room.
--- NOTE | 2020-12-13 10:12 | NUR ---
RN IS TO DOCUMENT YES TO ALL APPLICABLE AREAS Pronouncement of : 1. Time Physician Notified:1010 2. Date of :12/13/2020 3. Time of : 954 4. DNR/Withdraw life support documented:YES 5. Monitor strip has been placed on chart:YES 6. Assessment process is of one-minute duration and includes following criteria: a) Patient is unresponsive to all stimuli: YES b) Pupils fixed and non-reactive:YES c) Auscultation of precordium reveals absence of heart tones:YES d) Auscultation of lungs reveals absence of breath sounds:YES e) Absence of blood pressure / all vital signs:YES f) QRS complexes are not present on monitor / EKG strip:YES g) Pacer spikes without capture:NA 4. Comments:/ SON/ DAUGHTER AND MULTIPLE FAMILY AT BEDSIDE AND PRESENT AT TIME OF PATIENTS PASSING. Addendum: 12/13/20 at 1019 by Madina Naylor RT Charted incorrectly by Iza Sexton RN
--- NOTE | 2020-12-13 10:15 | NUR ---
RN IS TO DOCUMENT YES TO ALL APPLICABLE AREAS Pronouncement of : LOULOU CYNDY 1. Time Physician Notified: 0 2. Date of : 12/13/2020 3. Time of : 954 4. DNR/Withdraw life support documented:YES 5. Monitor strip has been placed on chart:YES 6. Assessment process is of one-minute duration and includes following criteria: a) Patient is unresponsive to all stimuli: YES b) Pupils fixed and non-reactive:YES c) Auscultation of precordium reveals absence of heart tones:YES d) Auscultation of lungs reveals absence of breath sounds:YES e) Absence of blood pressure / all vital signs:YES f) QRS complexes are not present on monitor / EKG strip:YES g) Pacer spikes without capture:NA 4. Comments:/ SON/ DAUGHTER AND MULTIPLE FAMILY AT BEDSIDE AND PRESENT AT TIME OF PATIENTS PASSING.
[2020-12-13] MEDS ORDERED: VANCOMYCIN 750MG IV in NS 250 ML IV SCH (12:00)
[2020-12-14 16:18] LABS: ALLEN'S TEST POS; PATIENT TEMPERATURE 35.5
[2020-12-14 16:19] LABS: ABG PCO2 (T) 33.2 mmHg (35.0-48.0); ABG PO2 (T) 62.7 mmHg (75.0-100.0)
[2020-12-14 16:20] LABS: ABG BASE EXCESS -17.8 mmol/L (-2.0-2.0); ABG HCO3 10.7 mmol/L (22.0-26.0); FO2Hb 91.7 % (94-97); TOTAL HEMOGLOBIN 10.6 G/dl (14.0-18.0)
[2020-12-14 16:21] LABS: ABG OXYGEN SATURATION 92.3 % (94-97); FCOHb 0.3 % (0.0-3.9); FMetHb 0.4 % (0.0-1.5)
[2020-12-14 16:24] LABS: ALLEN'S TEST POS
[2020-12-14 16:25] LABS: ABG PCO2 (T) 53.7 mmHg (35.0-48.0)
[2020-12-14 16:26] LABS: ABG BASE EXCESS -18.9 mmol/L (-2.0-2.0); ABG HCO3 12.4 mmol/L (22.0-26.0); ABG OXYGEN SATURATION 82.9 % (94-97); ABG PO2 (T) 51.8 mmHg (75.0-100.0); FCOHb 0.3 % (0.0-3.9); FMetHb 0.6 % (0.0-1.5); FO2Hb 82.2 % (94-97)
[2020-12-15] MEDS ORDERED: VANCOMYCIN LEVEL IV ONE (11:30)
== END 2020-12-13 09:55 | disposition expired | DRG 871 ==
LOC: CICU 2S 22:26 → EEVIPCON 22:26 → CICU 2S 23:29 → EEVIPCON 23:29 → UNDOADMIN 23:29 → ICU 2S 12-12 20:21
PROVIDERS: ADMIT Internal Medicine Critical Care Medicine; ATTEND Internal Medicine Critical Care Medicine
PROC: 5A1945Z Respiratory Ventilation, 24-96 Consecutive Hours (ICD-10-PCS; principal; 2020-12-11)
PROC: 0BH17EZ Insertion of Endotracheal Airway into Trachea, Via Natural or Artificial Opening (ICD-10-PCS; 2020-12-11)
PROC: 30233R1 Transfusion of Nonautologous Platelets into Peripheral Vein, Percutaneous Approach (ICD-10-PCS; 2020-12-12)
DX: A41.9 Sepsis, unspecified organism (principal); J96.00 Acute respiratory failure, unspecified whether with hypoxia or hypercapnia; R65.21 Severe sepsis with septic shock; N17.0 Acute kidney failure with tubular necrosis; C18.9 Malignant neoplasm of colon, unspecified; C78.00 Secondary malignant neoplasm of unspecified lung; R64 Cachexia; C78.7 Secondary malignant neoplasm of liver and intrahepatic bile duct; D61.818 Other pancytopenia; E87.2 Acidosis; K56.600 Partial intestinal obstruction, unspecified as to cause; N13.6 Pyonephrosis; E11.9 Type 2 diabetes mellitus without complications; I10 Essential (primary) hypertension; N48.89 Other specified disorders of penis; R56.9 Unspecified convulsions; Z51.5 Encounter for palliative care; R34 Anuria and oliguria; Z88.8 Allergy status to other drugs, medicaments and biological substances; Z79.899 Other long term (current) drug therapy; Z79.4 Long term (current) use of insulin; Z68.23 Body mass index [BMI] 23.0-23.9, adult
CPT/HCPCS: 36415; 36430; 36600; 71045; 80053; 82803; 83036; 83605; 83735; 84100; 84134; 84478; 85007; 85018; 85025; 86885; 86900; 86901; 87070; 87186; 94002; 94003; 94760; C9113; G0378; J0461; J0692; J1442; J1450; J1815; J2020; J2060; J2270; J2543; J3370; J3490; J7040; J7050; P9035